=== PATIENT | female | born 1965 | race Caucasian/White ===

== ENCOUNTER 2024-04-05 18:53 | Emergency (ER) | payer MEDICARE, MEDICAID, SELFPAY ==
--- NOTE | 2024-04-05 19:03 | EDNOTE_ITS ---
<Statement entered by Bonnie Mckee MD - 04/06/24 04:28> As co-signing physician, I was present and available for consult prn. I concur with the plan and care as documented by the midlevel provider. ED General RME/HPI General Chief complaint: Extremity Injury, Upper Stated complaint: SHOULDER PAIN Time Seen by Provider: 04/05/24 19:02 Arrival date/time: 04/05/24 18:53 CC: Left shoulder pop HPI onset approximately 45 minutes ago patient presents by the EMS. Patient has profound mental retardation with microcephaly since . Concern by home health nurses the patient has a dislocated left shoulder. Related Data Home Medications ?Medication ?Instructions ?Recorded ?Confirmed B-complex with vitamin C (Super B 1 tab PO QDAY 10/05/19 02/27/20 Complex-Vitamin C tablet) acetaminophen 325 mg tablet 325 mg PO QID PRN Fever 10/05/19 02/27/20 (Tylenol) benztropine 2 mg tablet 2 mg PO QDAY 10/05/19 02/27/20 calcitonin (salmon) 200 1 spray intranasal (ALT) QDAY 10/05/19 02/27/20 unit/actuation nasal spray calcium 600 mg (as 1 tab PO BID 10/05/19 02/27/20 carbonate)-vitamin D3 10 mcg (400 unit) tablet docusate sodium 250 mg capsule 250 mg PO BID 10/05/19 02/27/20 famotidine 20 mg tablet 20 mg PO QDAY 10/05/19 02/27/20 ferrous sulfate 325 mg (65 mg 325 mg PO QDAY 10/05/19 02/27/20 iron) tablet,delayed release lactulose 10 gram/15 mL oral 20 g PO BID 10/05/19 02/27/20 solution (Enulose) pravastatin 20 mg tablet 20 mg PO QDAY 10/05/19 02/27/20 sodium polystyrene sulfonate 15 120 ml PO EVERYOTHERDAY 10/05/19 02/27/20 gram/60 mL oral suspension magnesium hydroxide 400 mg/5 mL 30 ml PO QDAY PRN Constipation 02/27/20 02/27/20 oral suspension (Milk of Magnesia) Allergies Allergy/AdvReac Type Severity Reaction Status Date / Time No Known Allergies Allergy Verified 10/05/19 10:37 Review of Systems Review of Systems ROS Unobtainable: unobtainable due to mental status Narrative Review of Systems: \ ED Exam Narrative Physical exam: [General: Appears not in any acute distress Head normocephalic HEENT: Eyes pupils are PERRLA EOMs intact mouth pink dry membranes mouth breather. All other subsystems of HEENT are within acceptable limits Neck is supple nontender Chest equal chest rise nontender to palpation Respiratory: Clear to auscultation no wheezes crackles or rubs CV: Rate rhythm is regular no murmurs rubs or clicks Abdomen is soft nontender no masses positive bowel sounds all 4 quadrants Skin: Intact no petechiae rash induration ulceration or crepitus Extremities: Left upper extremity is significantly contracted, deconditioned secondary to chronic condition. All other extremities deconditioned and contracted. Neuro: Awake Course Course Course Narrative: Patient has such severe contractures in the left upper extremity and turning of the head to the left side it is difficulty to complete a plain film series at this time I elect to CT the shoulder. Quality Measures none Orders Category Date Time Status CT shoulder LT wo con Stat Exams 04/05/24 20:04 Taken XR shoulder LT min 2V Stat Exams 04/05/24 19:03 Completed Vital Signs Vital signs: Vital Signs Temperature 99.5 F 04/05/24 19:52 Pulse Rate 140 H 04/05/24 19:52 Respiratory Rate 19 04/05/24 19:52 Blood Pressure 129/95 H 04/05/24 19:52 Pulse Oximetry (%) 94 L 04/05/24 19:52 Oxygen Delivery Method Room Air 04/05/24 19:52 [facility] Patient data External records reviewed:: [facility] previous records and EMS form Clinical information provided by:: patient and EMS Social determinants that could affect healthcare access:: none Patient has the following chronic illnesses:: Severe mental retardation microcephaly How is presenting disease/condition affected by chronic disease/condition?: uneffected by Evaluation data The following diagnostics were reviewed and interpreted by me:: radiology exam(s) Lab and/or radiology exams considered but not ordered:: Nondisplaced humeral head fracture. Interpretation Summary: Humeral head fracture Medications Medications considered but not ordered:: None Medication administrations:: None Consultations Consultation(s) initiated? (list below): No Diagnosis Differential Diagnosis ED Complaint MDM: Shoulder dislocation humeral fracture humeral head fracture Most likely diagnosis given after review of the tests above:: Humeral head fracture Admission Indicated Admission indicated?: not indicated Explain why admission is indicated or not indicated:: Stable for discharge Admission Request Was there a request for admission?: No Disposition Plan Disposition Plan: Discharge Discharge Attestation Discharge Attestation: The patient and all family members were given an opportunity to ask questions and understood the discharge instructions. Discharge instructions specifically effects, indications for sooner follow up or return to the emergency department, and the expected course of current diagnosis. Patient condition: Stable Medical Decision Making Differential Diagnosis Differential Diagnosis: Shoulder dislocation humeral fracture humeral head fracture Discharge Plan Plan Patient Disposition: HOME (Self Care) Patient condition on transfer: Stable Prescriptions/Referrals Prescriptions/Med Rec: No Action acetaminophen [Tylenol] 325 mg Tablet 325 mg PO QID PRN (Reason: Fever) sodium polystyrene sulfonate 15 gram/60 mL Suspension 120 ml PO EVERYOTHERDAY Rx Instructions: SATURDAY, SATURDAY, SATURDAY famotidine 20 mg Tablet 20 mg PO QDAY calcitonin (salmon) 200 unit/actuation [place],Non-Aerosol 1 spray INTRANASAL (ALT) QDAY benztropine 2 mg Tablet 2 mg PO QDAY pravastatin 20 mg Tablet 20 mg PO QDAY ferrous sulfate 325 mg (65 mg iron) Tablet,Delayed Release (Dr/Ec) 325 mg PO QDAY docusate sodium 250 mg Capsule 250 mg PO BID B-complex with vitamin C [Super B Complex-Vitamin C] Tablet 1 tab PO QDAY lactulose [Enulose] 10 gram/15 mL Solution 20 g PO BID calcium carbonate-vitamin D3 600 mg(1,500mg) -400 unit Tablet 1 tab PO BID magnesium hydroxide [Milk of Magnesia] 400 mg/5 mL Suspension 30 ml PO QDAY PRN (Reason: Constipation) Rx Instructions: hold for loose stools Referrals: Kb Caraballo MD [Primary Care Provider] - In 1 week Chandana Padilla MD [Physician] - In 1 week Problem List Clinical Impression: Fracture of head of humerus Patient/Caregiver Discharge Instructions Education Materials: Understanding a Humerus Fracture Additional Instructions: Ms. Rodríguez has a humeral head fracture left side, because of her contractures there can be no splint placed on her arm it is splinted already by her muscle contractures. Please be very careful moving this arm while changing close until the arm heals which should extend up to as long as 10 weeks. Print Language: Trinidadian Stand Alone Forms: Ramonita Award Info., Patient Portal Info Letter PA/MENU PLANNER Supervising Physician PA/MENU PLANNER Supervising Physician: Ilya Tamayo ENP
--- NOTE | 2024-04-05 19:03 | XR_ITS ---
Examination: Left shoulder 2 views TECHNIQUE: AP left shoulders 2 view Examination type: October 03, 2024 1926 hours INDICATIONS: Injury to the shoulder study, shoulder pain FINDINGS: Acute fracture humeral neck, mild impaction No shoulder dislocation IMPRESSION: Limited study Acute fracture humeral neck
[2024-04-05 19:52] VITALS: BP 129/95; PULSE 140; RESP 19; TEMP 37.5; O2SAT 94
--- NOTE | 2024-04-05 20:04 | XR_ITS ---
Examination: CT left shoulder, without contrast. 2-D sagittal reconstructions. 2-D coronal reconstructions. 3-D reconstructions. Date and time of exam:April 05, 20242017 hours INDICATIONS: Onset shoulder pain today CTDI: vol (mGy):5.19 DLP: (mGycm):89.7 Technique: Multiple 1.25 mm axial sections of the left shoulder intravenous contrast have been obtained. 2-D sagittal and coronal reconstructions have been obtained. 3-D reconstructions have been obtained. Low dose protocols were performed. One or more of the following dose reduction techniques were used; automated exposure control, adjustment of the mA and/or KV according to patient size, use of iterative reconstruction technique. Findings: The entire study is severely degraded by continual patient motion Impacted acute fracture humeral neck No shoulder dislocation IMPRESSION: The entire study is severely degraded by patient motion Acute impacted fracture humeral neck, better depicted on the plain films
[2024-04-05 21:26] VITALS: BP 135/104; PULSE 124; RESP 16; O2SAT 95
[2024-04-05 22:43] VITALS: RESP 16
== END 2024-04-05 22:44 | disposition home or self-care (01) ==
PROVIDERS: Emergency Provider Emergency Medicine; PCP Family Medicine
DX: S42.292A Other displaced fracture of upper end of left humerus, initial encounter for closed fracture (principal); X58.XXXA Exposure to other specified factors, initial encounter
CPT/HCPCS: 73030; 73200; 99284

== ENCOUNTER 2024-05-12 15:06 | Inpatient (IN) | payer MEDICARE, MEDICAID, SELFPAY ==
--- NOTE | 2024-05-12 | XR_ITS ---
Examination: CT chest, without intravenous contrast. CT abdomen, without intravenous contrast. CT pelvis, without intravenous contrast. 2-D sagittal and coronal reconstructions. 3-D reconstructions. Date and time of exam:May 12, 2024 1716 hours Comparison October 06, 2019 INDICATIONS: Onset chest and abdominal pain today CTDI vol (mgy) 5.16 DLP (MGycm)305 Technique: Multiple CT images, 3.0 mm slice thickness, obtained chest, abdomen, pelvis, with the high-resolution 64 slice scanner.. Sagittal and coronal 2-D reconstructions are obtained. 3-D reconstructions Low dose protocols were performed. One or more of the following dose reduction techniques were used; automated exposure control, adjustment of the mA and/or KV according to patient size, use of iterative reconstruction technique. 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 Moderate vascular congestion Pneumonia in the lingular segment and left base Mild bilateral pleural disease No visualized liver or splenic lesion The gallbladder is poorly visualized No pancreatic mass 12 mm upper pole right renal calculus No hydronephrosis Aorta normal size Normal appendix No bowel obstruction No diverticulitis Atrophic uterus 3.8 cm bladder calculus Bladder wall thickening up to 7.5 mm Severe thoracic dextroscoliosis thoracolumbar levoscoliosis Severe kyphosis dorsal spine, severe osteopenia Mild to moderate narrowing hip joints IMPRESSION: Pneumonia in the lingular segment left upper lobe and left base Herniation of the stomach, portions of small bowel and colon into the thorax Moderate vascular congestion 12 mm upper pole nonobstructing right renal calculus Normal appendix No bowel obstruction 3.8 cm bladder calculus Bladder wall thickening up to 7.5 mm, cystitis included in the differential
--- NOTE | 2024-05-12 15:32 | PD.EDFEVER ---
ED Fever RME/HPI General Chief Complaint: Fever Stated Complaint: FEVER Time Seen by Provider: 05/12/24 15:28 Arrival date/time: 05/12/24 15:06 RME / HPI RME / HPI Narrative: DR. PAUL MAIN ED EVALUATION: This section includes all my notes and documentations, including HPI, PE, and ED course.? Gene Paul MD HPI: 59 year old female with past medical history significant for recent left scalp fracture and osteoporosis presents to the Emergency Department [facility] with complaint of fever, 101.2 F reported at the detention yesterday. Tylenol given at the detention. No obvious vomiting or diarrhea. Uncertain about other symptoms. ROS: Can't obtain from the patient due to decreased cognition. Physical Exam: General:? Alert. Appearance of malaise noted. Eyes:? Conjunctivae and lids clear. ENT:? No nasal congestion.? TM normal bilaterally. Pharynx normal. Neck:? Supple. Heart:?Sinus tachycardia noted. Lungs:? No respiratory distress.? Good air movement.? No significant rhonchi, wheezing, rales.? Abdomen:? Soft and nontender.? Legs:? No clubbing, cyanosis, edema. Skin:? Warm and dry.? I reviewed all diagnostic test results. My interpretation of the EKG is?Sinus rhythm (106 bpm) with nonspecific ST-T changes. My interpretation of the chest x-ray is no acute findings. Blood tests remarkable for K3.3, troponin 0.065, CRP 11.9, BNP 819. Influenza positive. Chest/abdomen CT pending. Repeat troponin pending. Urine specimen pending. At this point, diagnoses include influenza and elevated troponin. Treatment here included Zofran, IV fluid, Tamiflu, oral KCl, Rocephin. At 6 PM on 05/12/2024, the care of the patient was transferred to Dr. Stern. Gene Paul MD Related Data Home Medications ?Medication ?Instructions ?Recorded ?Confirmed B-complex with vitamin C (Super B 1 tab PO QDAY 10/05/19 02/27/20 Complex-Vitamin C tablet) acetaminophen 325 mg tablet 325 mg PO QID PRN Fever 10/05/19 02/27/20 (Tylenol) benztropine 2 mg tablet 2 mg PO QDAY 10/05/19 02/27/20 calcitonin (salmon) 200 1 spray intranasal (ALT) QDAY 10/05/19 02/27/20 unit/actuation nasal spray calcium 600 mg (as 1 tab PO BID 10/05/19 02/27/20 carbonate)-vitamin D3 10 mcg (400 unit) tablet docusate sodium 250 mg capsule 250 mg PO BID 10/05/19 02/27/20 famotidine 20 mg tablet 20 mg PO QDAY 10/05/19 02/27/20 ferrous sulfate 325 mg (65 mg 325 mg PO QDAY 10/05/19 02/27/20 iron) tablet,delayed release lactulose 10 gram/15 mL oral 20 g PO BID 10/05/19 02/27/20 solution (Enulose) pravastatin 20 mg tablet 20 mg PO QDAY 10/05/19 02/27/20 sodium polystyrene sulfonate 15 120 ml PO EVERYOTHERDAY 10/05/19 02/27/20 gram/60 mL oral suspension magnesium hydroxide 400 mg/5 mL 30 ml PO QDAY PRN Constipation 02/27/20 02/27/20 oral suspension (Milk of Magnesia) Allergies Allergy/AdvReac Type Severity Reaction Status Date / Time No Known Allergies Allergy Verified 05/12/24 15:46 Course Quality Measures none Orders Category Date Time Status Bedside COVID-19 Antigen Test NOW Care 05/12/24 15:36 Active Bedside Influenza A&B Antigen Test NOW Care 05/12/24 15:36 Completed EKG (ED ONLY) *Do not use* NOW Care 05/12/24 15:37 Completed Saline [Insert IV] NOW Care 05/12/24 15:36 Active Straight [In and Out Catheter] X1 Care 05/12/24 15:[address] chest abdomen pelvis wo Stat Exams 05/12/24 Taken EKG (ED Only) Stat Exams 05/12/24 15:37 Draft XR chest 1V portable Stat Exams 05/12/24 15:37 Completed BNP [B-Type Natriuretic Peptide] Stat Lab 05/12/24 15:56 Completed Blood Culture (Lab) Stat Lab 05/12/24 15:50 Received CBC Stat Lab 05/12/24 15:56 Completed CMP [Comprehensive Metabolic Panel] Stat Lab 05/12/24 15:56 Completed CRP [C-Reactive Protein] Stat Lab 05/12/24 15:56 Completed ESR [Sed Rate (ESR)] Stat Lab 05/12/24 15:56 Completed Lactate (Lactic Acid) Stat Lab 05/12/24 15:56 Completed Magnesium Stat Lab 05/12/24 15:56 Completed [place] Screen Stat Lab 05/12/24 15:56 Received Procalcitonin Stat Lab 05/12/24 15:56 Completed RSV [Respiratory Syncytial Virus Ag] Stat Lab 05/12/24 15:38 Ordered Salicylate Stat Lab 05/12/24 15:56 Completed Strep A Rapid Stat Lab 05/12/24 15:39 Ordered TSH [Thyroid Stimulating Hormone] Stat Lab 05/12/24 15:56 Completed Troponin I Stat Lab 05/12/24 15:56 Completed Troponin I Stat Lab 05/12/24 17:45 Ordered UA, C/S IF [Urinalysis, C/S if Indicated] Stat Lab 05/12/24 15:39 Ordered KCL 10% Liq UDC 15 ML Med 05/12/24 17:42 Discontinued 40 meq PO X1 ONE Ondansetron Inj [Zofran Inj] Med 05/12/24 15:36 Discontinued 4 mg IV X1 ONE Oseltamivir [Tamiflu] Med 05/12/24 17:42 Discontinued 75 mg PO X1 ONE Sodium Chloride 0.9% 1000 ml [Ns] 1,000 ml Med 05/12/24 15:36 Discontinued IV 999 mls/hr cefTRIAXone [Rocephin] 1,000 mg Med 05/12/24 15:36 Discontinued SODIUM CHLORIDE 0.9% ([place]) [Ns 0.9% (P)] 50 ml IV X1 Vital Signs Vital signs: Vital Signs Pulse Rate 105 H 05/12/24 15:40 Respiratory Rate 20 05/12/24 15:40 Blood Pressure 146/89 H 05/12/24 15:40 Pulse Oximetry (%) 93 L 05/12/24 15:40 Fever MDM Narrative MDM Narrative:: IDi am scribing for and in the presence of Dr. Paul. Patient data External records reviewed:: [facility] previous records (Reviewed last ED visit dated 04/05/24 discharged with the following: Fracture of head of humerus) and EMS form Clinical information provided by:: EMS Social determinants that could affect healthcare access:: housing (home ) Patient has the following chronic illnesses:: recent left scalp fracture and osteoporosis How is presenting disease/condition affected by chronic disease/condition?: uneffected by Evaluation data The following diagnostics were reviewed and interpreted by me:: lab results, radiology exam(s) and EKG tracing(s) (My interpretation of the EKG is: Sinus rhythm (106 bpm) with nonspecific ST-T changes. Gene Paul MD) Lab and/or radiology exams considered but not ordered:: none Interpretation Summary: Influenza and elevated troponin Medications / Prescriptions Medications or Prescriptions considered but not ordered:: none Medication administrations:: Medication Administration History Discontinued Medications Sodium Chloride (Ns) 1,000 mls @ 999 mls/hr IV .Q1H1M ONE Stop: 05/12/24 16:36 Last Admin: 05/12/24 17:01 Dose: 999 mls/hr Documented By: ER Ceftriaxone Sodium 1,000 mg/ (Sodium Chloride) 50 mls @ 100 mls/hr IV X1 ONE Stop: 05/12/24 16:05 Last Admin: 05/12/24 17:02 Dose: 100 mls/hr Documented By: ER Ondansetron HCl (Ondansetron Inj 2 Mg/Ml Inj 2 Ml) 4 mg IV X1 ONE; Protocol Stop: 05/12/24 15:37 Last Admin: 05/12/24 16:59 Dose: 4 mg Documented By: ER Oseltamivir Phosphate (Oseltamivir 75 Mg Capsule) 75 mg PO X1 ONE Stop: 05/12/24 17:43 Potassium Chloride (Potassium Chloride 10% 20 Meq/15 Ml Udc) 40 meq PO X1 ONE Stop: 05/12/24 17:43 Zofran, IV fluid, Rocephin, oral KCl, and Tamiflu. Consultations Consultation(s) initiated? (list below): No Diagnosis Fever Differential Diagnosis: cellulitis, fever of unknown origin, gastroenteritis, community acquired pneumonia, pyelonephritis, viral infection, sepsis and influenza Most likely diagnosis given after review of the tests above:: Influenza and elevated troponin Admission Indicated Admission indicated?: not indicated Explain why admission is indicated or not indicated:: Complete diagnostics pending Admission Request Was there a request for admission?: No Disposition Plan Disposition Plan: other (specify) (Care of the patient was transferred to Dr. Stern) Discharge Plan Prescriptions/Referrals Prescriptions/Med Rec: No Action acetaminophen [Tylenol] 325 mg Tablet 325 mg PO QID PRN (Reason: Fever) sodium polystyrene sulfonate 15 gram/60 mL Suspension 120 ml PO EVERYOTHERDAY Rx Instructions: SATURDAY, SATURDAY, SATURDAY famotidine 20 mg Tablet 20 mg PO QDAY calcitonin (salmon) 200 unit/actuation [place],Non-Aerosol 1 spray INTRANASAL (ALT) QDAY benztropine 2 mg Tablet 2 mg PO QDAY pravastatin 20 mg Tablet 20 mg PO QDAY ferrous sulfate 325 mg (65 mg iron) Tablet,Delayed Release (Dr/Ec) 325 mg PO QDAY docusate sodium 250 mg Capsule 250 mg PO BID B-complex with vitamin C [Super B Complex-Vitamin C] Tablet 1 tab PO QDAY lactulose [Enulose] 10 gram/15 mL Solution 20 g PO BID calcium carbonate-vitamin D3 600 mg(1,500mg) -400 unit Tablet 1 tab PO BID magnesium hydroxide [Milk of Magnesia] 400 mg/5 mL Suspension 30 ml PO QDAY PRN (Reason: Constipation) Rx Instructions: hold for loose stools Referrals: Kb Caraballo MD [Primary Care Provider] - In 1 week Problem List Clinical Impression: Influenza, Elevated troponin Patient/Caregiver Discharge Instructions Print Language: Taiwanese
[2024-05-12 15:35] VITALS: PULSE 112; RESP 24; O2SAT 98
--- NOTE | 2024-05-12 15:37 | EKG_ITS ---
[facility] Test Date: 2024-05-12 Pat Name: CHITO WATSON Department: Room: - Gender: Female Sales And Service Advisor: : 1965 Requested By: Gene Nelson Order Number: [id number] Reading MD: Gene Nelson Measurements Intervals [place] Rate: 106 P: 20 [place]: 140 QRS: 41 QRSD: 81 T: 1 QT: 332 QTc: 441 Interpretive Statements SINUS TACHYCARDIA MINIMAL ST DEPRESSION [0.025+ mV ST DEPRESSION] ABNORMAL RHYTHM ECG Compared to ECG 02/27/2020 11:59:58 ST (T wave) deviation now present T-wave abnormality no longer present /store/S0/[id number].pdf
--- NOTE | 2024-05-12 15:37 | XR_ITS ---
Examination: AP single view TECHNIQUE: Supine portable AP single view Exam date and time: May 12, 2024 1557 hours INDICATIONS: Fever beginning this morning. FINDINGS: The film is severely rotated LPO There appears to be severe parenchymal disease in the left lung IMPRESSION: Nondiagnostic chest x-ray, repeat nonrotated
[2024-05-12 15:40] VITALS: BP 146/89; PULSE 105; RESP 20; O2SAT 93
[2024-05-12 16:00] VITALS: BP 130/86; PULSE 109; RESP 20; TEMP 37.9; O2SAT 97
[2024-05-12 16:07] LABS: Basophils % (Auto) 0 % (0-2.5); Eosinophils % (Auto) 0 % (0-10); Hematocrit 41.8 % (36.0-46.0); Hemoglobin 13.7 g/dL (12.0-16.0); Immature Granulocytes % (Auto) 0 % (0-0); Immature Granulocytes Auto 0.03 Thou/mm3 (0.00-0.00); Lymphocytes # (Auto) 0.6 Thou/mm3 (1.0-4.8); Lymphocytes % (Auto) 6 % (10-50); Mean Corpuscular HGB Conc 32.8 g/dl (31.0-37.0); Mean Corpuscular Volume 92 fL (80-100); Monocytes # (Auto) 0.8 Thou/mm3 (0.0-0.8); Monocytes % (Auto) 7 % (0-12); Neutrophils # (Auto) 9.1 Thou/mm3 (1.8-7.7); Neutrophils % (Auto) 86 % (37-80); Nucleated Red Blood Cell % 0 /100 WBC (0); Platelet Count 246 Thou/mm3 (140-440); RDW Standard Deviation 45.1 fL (36.4-46.3); Red Blood Count 4.56 Miln/mm3 (4.00-5.20); White Blood Count 10.5 Thou/mm3 (3.6-11.0)
[2024-05-12 16:23] LABS: B-Type Natriuretic Peptide 119 pg/mL (0-100)
[2024-05-12 16:36] LABS: Sed Rate (ESR) 30 mm/hr (0-30)
[2024-05-12 16:37] LABS: Alanine Aminotransferase 11 U/L (10-49); Albumin/Globulin Ratio 1.6 (1.2-2.2); Alkaline Phosphatase 114 U/L (46-116); Anion Gap 9 (7-16); Aspartate Amino Transferase 21 U/L (0-34); BUN/Creatinine Ratio 18 Ratio (12-20); Bilirubin,Total 0.4 mg/dL (0.3-1.2); Blood Urea Nitrogen 11 mg/dL (9-23); C-Reactive Protein 11.9 mg/dL (0.0-0.9); Calcium 9.3 mg/dL (8.3-10.6); Calcium (Corrected) 9.3 mg/dL (8.5-10.1); Chloride 102 mMol/L (98-107); Creatinine (Component) 0.6 mg/dL (0.6-1.3); Globulin 2.5 gm/dL (2.3-3.5); Glucose 183 mg/dL (74-106); Magnesium 1.8 mg/dL (1.6-2.6); Osmolality,Calculated 283 (275-295); Potassium 3.3 mMol/L (3.4-5.1); Procalcitonin 0.67 ng/ml (0.0-0.49); Salicylate < 3.0 mg/dL; Sodium 140 mMol/L (136-145); Thyroid Stimulating Hormone 0.98 uIU/mL (0.55-4.78); Total Protein 6.5 gm/dL (5.7-8.2); eGFR > 60 See Note
[2024-05-12 16:43] LABS: Troponin I 0.065 ng/mL (0.0-0.045)
[2024-05-12] MEDS: ONDANSETRON INJ 2 MG/ML INJ 2 ML 4 MG IV (16:59)
[2024-05-12] MEDS: SODIUM CHLORIDE 0.9% 1000 ML 1,000 ML 999 ML IV (17:01)
[2024-05-12] MEDS: cefTRIAXone 1,000 MG in SODIUM CHLORIDE 0.9% (Popper) 50 ML 100 MG IV (17:02)
[2024-05-12 18:03] VITALS: BP 134/94; PULSE 108; RESP 20; TEMP 37.4; O2SAT 95
--- NOTE | 2024-05-12 18:25 | EDNOTE_ITS ---
Emergency Room Addendum Addendum Narrative: [address] Haddad. Past medical, surgical, social and family history reviewed. Vitals and home medications reviewed. Results and treatment plan discussed. I will assume the care of the patient at this time and will follow the patient, pending lab workup and CT results. Please refer to the emergency department record for history and examination from initial visit. The following addendum documentation note is intended to reflect any pending information, findings, or radiology results not included in the patient?s initial chart. 2028 Patient swabs were positive for Influenza A&B. 2034: The patient exhibits generalized choreoathetotic movements and has a history of developmental delay, nonverbal status, and baseline contractures, with features consistent with cerebral palsy. 2045: Sepsis alert initiated. Orders made were congruent with ED Adult Sepsis Order List. Sepsis reassessment performed consisting of lab review, vitals, physical exam including auscultation of heart, lungs, and visual evaluation of capillary refills, mucosal membranes and extremities. 2104: Dr. Srivastava, hospitalist, made aware of the patient?s HPI, PMHx, lab and/or radiology results. Treatment plan was discussed. Accepts patient for admission. Clinical impression: UTI, Sepsis, Pneumonia, Influenza A&B, Elevated Troponin Disposition: Acute Admit w/in Hospital Radiology Evaluation data The following diagnostics were reviewed and interpreted by me: radiology exam(s), EKG Interpretation Summary: According to my interpretation, the EKG from 2050 shows sinus tachycardia at a rate of 135 bpm, with a normal axis, no ectopy, and no signs of ischemia. I personally reviewed the radiology data and agree with the radiologist's interpretation. Examination: CT chest, without intravenous contrast. CT abdomen, without intravenous contrast. CT pelvis, without intravenous contrast. 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 Moderate vascular congestion Pneumonia in the lingular segment and left base Mild bilateral pleural disease No visualized liver or splenic lesion The gallbladder is poorly visualized No pancreatic mass 12 mm upper pole right renal calculus No hydronephrosis Aorta normal size Normal appendix No bowel obstruction No diverticulitis Atrophic uterus 3.8 cm bladder calculus Bladder wall thickening up to 7.5 mm Severe thoracic dextroscoliosis thoracolumbar levoscoliosis Severe kyphosis dorsal spine, severe osteopenia Mild to moderate narrowing hip joints IMPRESSION: Pneumonia in the lingular segment left upper lobe and left base Herniation of the stomach, portions of small bowel and colon into the thorax Moderate vascular congestion 12 mm upper pole nonobstructing right renal calculus Normal appendix No bowel obstruction 3.8 cm bladder calculus Bladder wall thickening up to 7.5 mm, cystitis included in the differential Dictated By: Hakeem Stockton MD, MD Attestation Attestation Scribe Attestation: I, Channing Stewart, am scribing for and in the presence of Dr. Stern. Provider Notation: Although this document has been carefully reviewed, there may still be some phonetic and other typographical errors. These errors are purely grammatical due to imperfections in the software program and should not be construed in any way to compromise the substance of the patient's medical care during this visit. Critical Care Time Critical Care Time Critical Care Time: Yes Total Critical Care Time (min.): 35 Attestation: The high probability of sudden, clinically significant deterioration in the patient?s condition required the highest level of my preparedness to intervene urgently. ? The services I provided to this patient were to treat and/or prevent clinically significant deterioration. Services included the following: chart data review, reviewing nursing notes and/or old charts, documentation time, collection systems consultant collaboration regarding findings and treatment options, medication orders and management, direct patient care, vital sign assessments and ordering, interpreting and reviewing diagnostic studies and lab tests. ? Aggregate critical care time includes only time during which I was engaged in work directly related to the patient?s care, as described above, whether at bed side or elsewhere in the Emergency Department. It did not include time spent performing other reported procedures or the services of residents, students, nurses or physician assistants.
[2024-05-12 18:28] LABS: Troponin I 0.059 ng/mL (0.0-0.045)
[2024-05-12 18:39] LABS: Collection Type, Urine Clean Catch
[2024-05-12 18:58] LABS: Bilirubin,Urine Negative (Negative); Blood,Urine 3+ (Negative); Clarity,Urine Clear (Clear/Hazy); Color,Urine Yellow (Lt Yel-Yel); Culture Indicated,Urine Yes; Glucose, Urine Negative (Negative); Ketones,Urine Negative (Negative); Leukocyte Esterase,Urine Positive (Negative); Nitrite,Urine Positive (Negative); Protein,Urine Trace (Neg - Trace); RBC,Urine 7 /hpf (0-3); Squamous Epithelial Cell,Urine < 1 /hpf (0-5); Urobilinogen,Urine Negative mg/dL (0.0-1.0); WBC,Urine 44 /hpf (0-5)
[2024-05-12] MEDS: OSELTAMIVIR 75 MG CAPSULE PO (19:00)
--- NOTE | 2024-05-12 19:21 | PC.NURSE ---
keren little point of contact [phone]
[2024-05-12 20:13] LABS: Strep A Rapid Negative (Negative)
[2024-05-12] MEDS: POTASSIUM CHL 10 mEq IVPB 10 MEQ/100 ML BAG 100 MEQ IV ×2 (20:19→22:55)
--- NOTE | 2024-05-12 20:26 | EKG_ITS ---
[facility] Test Date: 2024-05-12 Pat Name: CHITO WATSON Department: Room: - Gender: Female Director Of Graduate Medical Education: : 1965 Requested By: Zeus Baig Order Number: [id number] Reading MD: Zeus Baig Measurements Intervals [place] Rate: 135 P: 54 [place]: 140 QRS: 43 QRSD: 74 T: -7 QT: 285 QTc: 428 Interpretive Statements SINUS TACHYCARDIA NONSPECIFIC ST & T-WAVE ABNORMALITY ABNORMAL RHYTHM ECG Compared to ECG 05/12/2024 15:44:47 T-wave abnormality now present ST (T wave) deviation no longer present /store/S0/[id number].pdf
[2024-05-12 20:57] VITALS: BP 168/77; PULSE 128; PULSE 130; RESP 28; RESP 36; O2SAT 96; O2SAT 97
--- NOTE | 2024-05-12 22:21 | PD.RESHP ---
Documentation for date of: 05/12/24 HPI History of Present Illness History of present illness: HPI is limited as patient is poor historian as developmentally delayed. Most of history obtained through fuel cell technician. Rosa M is a 59 y/o female with PMHx of developmental delay, osteoporosis, microcephaly, wheelchair-bound comes in for an evaluation of hypoxia, and increased work of breathing. Patient is conserved and stays at a rn long term care home. Spoke with fuel cell technician who reports that patient is conserved and lives at home with other residents. She is also stating that patient had increased work of breathing and had noticed that her oxygen saturations were 8992%. She also does endorse that there have been other sick residents at her fuel cell technician home. She also notes that the patient was evaluated for a torn left humerus after she was getting her close changed and due to her having osteoporosis there was a break in her bone. She also said that the patient looked a bit different, but is unsure if the patient was having chest pain. Endorsed shortness of breath and fever. No other complaints at this time ED course: Patient came in with a temperature of 100.3, blood pressure 140/89, saturating 93% on room air, respiratory rate of 20, heart rate of 105, sodium of 140, potassium 3.3, bicarb 29, BUN/creatinine of eleven 0.6, blood glucose of 183, white count of 10.5, hemoglobin 13.7, lactate of 2.0, magnesium 1.8, troponin 0.065, Pro-Davon 0.67. EKG showed sinus tachycardia rate in the 110s. She tested influenza positive for A and B. Sepsis alert was initiated. She was given Rocephin x 1, 1 L bolus, Tamiflu 75 mg, Zofran x 1. Medicine was consulted and patient was admitted to floors. Review of Systems Review of Systems Narrative Review of Systems: ROS is limited as patient is poor historian. Exam Vital Signs Temp Pulse Resp BP Pulse Ox O2 Del Method 99.3 F 128 H 28 H 168/77 H 96 Room Air 05/12/24 18:03 05/12/24 20:57 05/12/24 20:57 05/12/24 20:57 05/12/24 20:57 05/12/24 20:57 Narrative Exam General: Developmentally delayed, lying in bed and curled up position, appears to be bedbound, arms, hands and feet close to body HEENT: Poor dentition, dry mucous membranes, eyes wide open, microcephaly Cardiovascular: Tachycardia, radial pulses +2 bilaterally Pulmonary: Wheezing heard on auscultation GI: No tenderness to light or deep palpitation, no guarding, rigidity, rebound tenderness or distension Extremities: No presence of trace or pitting edema in lower extremities bilaterally, dorsalis pedis pulses +2 bilaterally Neuro: AAOx0, no focal motor or sensory deficits in the UE or LE bilat Results: Labs 05/12/24 15:56 05/12/24 15:56 Labs: Short CBC 05/12/24 Range/Units 15:56 WBC 10.5 (3.6-11.0) Thou/mm3 Hgb 13.7 (12.0-16.0) g/dL Hct 41.8 (36.0-46.0) % Plt Count 246 (140-440) Thou/mm3 BMP 05/12/24 15:56 Sodium 140 Potassium 3.3 L Chloride 102 Carbon Dioxide 29.0 BUN 11 Creatinine 0.6 Glucose 183 H Calcium 9.3 Cardiac Enzymes 05/12/24 05/12/24 Range/Units 15:56 17:53 Troponin I 0.065 H* 0.059 H* (0.0-0.045) ng/mL Liver Function 05/12/24 Range/Units 15:56 Total Bilirubin 0.4 (0.3-1.2) mg/dL AST 21 (0-34) U/L ALT 11 (10-49) U/L Alkaline Phosphatase 114 (46-116) U/L Albumin 4.0 (3.4-4.8) gm/dL Urine 05/12/24 Range/Units 18:28 Urine Color Yellow (Lt Yel-Yel) Urine Clarity Clear (Clear/Hazy) Urine pH 7.0 (5.0-7.0) Ur Specific [place] 1.010 (1.001-1.035) Urine Protein Trace (Neg - Trace) Urine Glucose (UA) Negative (Negative) Quality Measures Quality Measures none Medications Home Medications and Allergies Home Medications ?Medication ?Instructions ?Recorded ?Confirmed ?Type B-complex with vitamin C (Super B 1 tab PO QDAY 10/05/19 02/27/20 History Complex-Vitamin C tablet) acetaminophen 325 mg tablet 325 mg PO QID PRN Fever 10/05/19 02/27/20 History (Tylenol) benztropine 2 mg tablet 2 mg PO QDAY 10/05/19 02/27/20 History calcitonin (salmon) 200 1 spray intranasal (ALT) QDAY 10/05/19 02/27/20 History unit/actuation nasal spray calcium 600 mg (as 1 tab PO BID 10/05/19 02/27/20 History carbonate)-vitamin D3 10 mcg (400 unit) tablet docusate sodium 250 mg capsule 250 mg PO BID 10/05/19 02/27/20 History famotidine 20 mg tablet 20 mg PO QDAY 10/05/19 02/27/20 History ferrous sulfate 325 mg (65 mg 325 mg PO QDAY 10/05/19 02/27/20 History iron) tablet,delayed release lactulose 10 gram/15 mL oral 20 g PO BID 10/05/19 02/27/20 History solution (Enulose) pravastatin 20 mg tablet 20 mg PO QDAY 10/05/19 02/27/20 History sodium polystyrene sulfonate 15 120 ml PO EVERYOTHERDAY 10/05/19 02/27/20 History gram/60 mL oral suspension magnesium hydroxide 400 mg/5 mL 30 ml PO QDAY PRN Constipation 02/27/20 02/27/20 History oral suspension (Milk of Magnesia) Allergies Allergy/AdvReac Type Severity Reaction Status Date / Time No Known Allergies Allergy Verified 05/12/24 15:46 Visit Medications Acetaminophen (Acetaminophen 325 Mg Tablet) 650 mg PO Q6H PRN PRN Reason: Fever >101.5 Stop: 06/11/24 22:02 Benztropine Mesylate (Benztropine 0.5 Mg Tablet) 2 mg PO QDAY [facility] Stop: 06/12/24 08:59 Calcitonin [place] (Calcitonin, [place] Spr 3.7 Ml Btl) 1 spray NASAL QDAY [facility] Stop: 06/12/24 08:59 Docusate Sodium (Docusate Sod 250 Mg Capsule) 250 mg PO BID [facility]; Protocol Stop: 06/12/24 08:59 Enoxaparin Sodium (Enoxaparin Sod Inj 40 Mg/0.4 Ml Syringe) 40 mg SC QDAY [facility] Stop: 05/27/24 08:59 Famotidine (Famotidine 20 Mg Tablet) 20 mg PO QDAY [place] Stop: 06/12/24 08:59 Sodium Chloride (Ns) 250 mls @ 999 mls/hr IV .Q16M ONE Stop: 05/12/24 22:31 Lactulose (Lactulose Syrup 20 Gm/30 Ml Udc) 10 gm PO BID [facility]; Protocol Stop: 06/12/24 08:59 Magnesium Hydroxide (Milk Of Magnesia Susp 30 Ml Udc) 30 ml PO QDAY [facility]; Protocol Stop: 06/12/24 08:59 Pravastatin Sodium (Pravastatin Sodium 10 Mg Tablet) 20 mg PO QDAY [facility] Stop: 06/12/24 08:59 Discontinued Medications Sodium Chloride (Ns) 1,000 mls @ 999 mls/hr IV .Q1H1M ONE Stop: 05/12/24 16:36 Last Infusion: 05/12/24 18:45 Dose: Infused Ceftriaxone Sodium 1,000 mg/ (Sodium Chloride) 50 mls @ 100 mls/hr IV X1 ONE Stop: 05/12/24 16:05 Last Infusion: 05/12/24 18:45 Dose: Infused Sodium Chloride (Ns) 1,000 mls @ 999 mls/hr IV .Q1H1M ONE Stop: 05/12/24 21:06 Potassium Chloride (Kcl Ivpb) 10 meq in 100 mls @ 100 mls/hr IV X1 ONE Stop: 05/12/24 21:11 Last Infusion: 05/12/24 20:48 Dose: 0 mls/hr Ondansetron HCl (Ondansetron Inj 2 Mg/Ml Inj 2 Ml) 4 mg IV X1 ONE; Protocol Stop: 05/12/24 15:37 Last Admin: 05/12/24 16:59 Dose: 4 mg Oseltamivir Phosphate (Oseltamivir 75 Mg Capsule) 75 mg PO X1 ONE Stop: 05/12/24 17:43 Last Admin: 05/12/24 19:00 Dose: 75 mg Potassium Chloride (Potassium Chloride 10% 20 Meq/15 Ml Udc) 40 meq PO X1 ONE Stop: 05/12/24 17:43 Last Admin: 05/12/24 19:14 Dose: Not Given Assessment & Plan Plan Assessment Rosa M is a 59 y/o female with PMHx of developmental delay, osteoporosis, microcephaly, wheelchair-bound admitted for acute toxic respiratory failure and sepsis secondary to influenza pneumonia. #Acute hypoxic respiratory failure #Sepsis secondary to #Influenza pneumonia Less concern for superimposed bacterial infection at this time qSOFA: 0 points SIRS 2 out of 4 criteria, fever 100.3 and tachycardia Source: Lung Received 1L NS in ER Influenza A and B positive, sick contacts at fuel cell technician home Unsure if patient has gotten influenza vaccine this year Plan: ? Tamiflu 75 mg twice daily ? Oxygen as needed wean down as tolerated ? Follow-up MRSA nares ? Follow-up blood cultures ? 250 cc bolus NS #UTI Urine analysis shows positive nitrates, positive leukocyte esterase According to fuel cell technician, patient does not get chronic UTIs however has gotten them in the past Plan: ? Started broad-spectrum Rocephin 1 g IV daily ? Follow-up urine culture #Hypokalemia 3.3 Patient takes Kayexalate 3 times a day as a home medicine, unsure why Will not resume Kayexalate at this time Plan: ? Trend with CMP ? 20 millequivalents IV #Elevated troponin, resolved .065 -> 0.059 #History of hiatal hernia Chronic Plan: ? Resumed Pepcid 20 mg daily #History of osteoporosis #History of humeral fracture Chronic Plan: ? Resume home calcitonin spray #History of microcephaly #Developmental delay Stable #Health Maintenance Disposition: MedSurg DVT prophylaxis: Lovenox GI prophylaxis: Pepcid Diet: Pureed once patient passes swallow eval CODE STATUS: Full Patient seen and care discussed with my attending physician, Dr. Brenda Yan, PGY-1 Attending Provider Attestation/Addendum I attest that I was physically present for the evaluation, physical examination, lab and imaging review of the patient with the residents. I discussed the case with the residents and agree with the findings and plans of care as documented above. Patient is a 59 years old female with past medical history of developmental delay, microcephaly, osteoporosis who presented to the ED with complaint of hypoxia and work of breathing. Patient is stays at a long-term, and is wheelchair-bound. The fuel cell technician noticed that she has increased work of breathing and her oxygen saturation dropped down to 89% and decided to bring her to the ED. In the ED, she had a temperature of 100.3, respiratory rate 20, heart rate 105. She had WBC of 10.5, lactate 2.0, positive influenza A and B. Sepsis alert was initiated in the ED, patient received IV fluid bolus, Rocephin, Tamiflu and Zofran. We will admit the patient for management of acute hypoxic respiratory failure and sepsis secondary to influenza pneumonia. We will continue with Tamiflu, as needed oxygen and IV hydration. We will follow-up on culture results. Patient also noted to have positive nitrites, leukocyte esterase and WBCs in the urine, we will start her on Rocephin 1 g daily. Patient also has potassium of 3.3, she has been on Kayexalate at home, we will hold Kayexalate administered IV potassium chloride. Patient had elevated troponin at 0.65 which later down trended likely NSTEMI type II. Bentley Gutierrez MD
[2024-05-12] MEDS: SODIUM CHLORIDE 0.9% 250 ML 250 ML 999 ML IV (22:23)
[2024-05-12] MEDS: ACETAMINOPHEN IVPB 1,000 MG/100 ML VIAL 250 MG IV (22:51)
[2024-05-12 23:15] VITALS: BP 147/92; PULSE 110; RESP 25; TEMP 38.7; O2SAT 97
[2024-05-12] MEDS: SODIUM CHLORIDE 0.9% 1000 ML 1,000 ML 75 ML IV (23:20)
[2024-05-13] VITALS (7 sets, daily range): BP systolic 139–186; BP diastolic 95–108; PULSE 92–116; RESP 20–81; TEMP 35.9–36.6; O2SAT 91–97; BMI 19.0
[2024-05-13] MEDS: POTASSIUM CHL 10 mEq IVPB 10 MEQ/100 ML BAG 100 MEQ IV (00:11)
[2024-05-13 00:16] LABS: Lactate (Lactic Acid) 0.7 mMol/L (0.4-2.0)
[2024-05-13 02:59] LABS: Respiratory Syncytial Virus Ag Negative (Negative)
[2024-05-13 05:29] LABS: Basophils % (Auto) 1 % (0-2.5); Eosinophils % (Auto) 0 % (0-10); Hematocrit 38.7 % (36.0-46.0); Hemoglobin 12.9 g/dL (12.0-16.0); Immature Granulocytes % (Auto) 0 % (0-0); Immature Granulocytes Auto 0.03 Thou/mm3 (0.00-0.00); Lymphocytes # (Auto) 0.9 Thou/mm3 (1.0-4.8); Lymphocytes % (Auto) 12 % (10-50); Mean Corpuscular HGB Conc 33.3 g/dl (31.0-37.0); Mean Corpuscular Hemoglobin 30.7 pg (25.0-35.0); Mean Corpuscular Volume 92 fL (80-100); Monocytes # (Auto) 0.7 Thou/mm3 (0.0-0.8); Monocytes % (Auto) 10 % (0-12); Neutrophils # (Auto) 5.3 Thou/mm3 (1.8-7.7); Neutrophils % (Auto) 77 % (37-80); Nucleated Red Blood Cell % 0 /100 WBC (0); Platelet Count 222 Thou/mm3 (140-440)
[2024-05-13 05:50] LABS: Partial Thromboplastin Time 28.5 Seconds (22.0-36.0); Prothrombin Time 11.3 Seconds (9.0-12.2)
[2024-05-13 06:31] LABS: Alanine Aminotransferase 11 U/L (10-49); Albumin, Serum 3.3 gm/dL (3.4-4.8); Albumin/Globulin Ratio 1.6 (1.2-2.2); Alkaline Phosphatase 95 U/L (46-116); Anion Gap 8 (7-16); Aspartate Amino Transferase 22 U/L (0-34); BUN/Creatinine Ratio 13 Ratio (12-20); Bilirubin,Total < 0.2 mg/dL (0.3-1.2); Blood Urea Nitrogen < 5 mg/dL (9-23); Calcium 8.4 mg/dL (8.3-10.6); Carbon Dioxide 25.2 mMol/L (20.0-31.0); Cardiac Risk Estimate 2.2 RATIO (3.7-5.6); Chloride 110 mMol/L (98-107); Cholesterol 110 mg/dL (132-200); Creatinine (Component) 0.4 mg/dL (0.6-1.3); Globulin 2.1 gm/dL (2.3-3.5); Glucose 103 mg/dL (74-106); HDL Cholesterol 50 mg/dL (40-60); LDL Cholesterol,Calculated 36 mg/dL (0-130); Magnesium 1.7 mg/dL (1.6-2.6); Osmolality,Calculated 282 (275-295); Phosphorous 2.5 mg/dL (2.4-5.1); Potassium 3.8 mMol/L (3.4-5.1); Sodium 143 mMol/L (136-145); Total Protein 5.4 gm/dL (5.7-8.2); Triglycerides 120 mg/dL (30-150); eGFR > 60 See Note
[2024-05-13] MEDS: ENOXAPARIN SOD INJ 40 MG/0.4 ML SYRINGE SC (08:44)
[2024-05-13] MEDS: Magnesium Sulfate 4 GM Ivpb 4 GM/50 ML BAG IV (08:44)
--- NOTE | 2024-05-13 09:50 | ESPR_ITS ---
<Statement entered by Paris Edge MD - 05/13/24 23:16> Patient was seen and examined by me personally. I have directly supervised and reviewed documentation by the team resident and agree with its findings with any exceptions or additional findings as below. Plan of care was discussed with the attending, Dr. Tran. Overnight admission. Patient is a 59-year-old female with past medical history of developmental delay, osteoporosis, microcephaly, wheelchair-bound who was admitted for acute toxic respiratory failure and sepsis secondary to influenza A&B pneumonia. She was also found to have UTI and a 3.5 cm bladder stone. Patient is nonverbal, noninteractive, very contracted. Tamiflu was ordered but unfortunately the patient did not pass swallow evaluation and did not receive any doses yet. Dr. Dawn spoke with caregiver on the phone regarding patient's baseline status, she apparently takes very thin liquids at baseline with some difficulty. Patient is conserved by Dr. Mayo. Speech will continue to re-evaluate the patient. The patient is otherwise receiving IV ceftriaxone for the UTI. She does not seem to express any significant distress or tenderness on palpation of the abdomen or suprapubic area on examination. Urology Dr. Han agreed to consult for the bladder stone, much appreciated. Cultures are pending. Paris Edge, PGY-2 Documentation for date of: 05/13/24 Subjective Subjective Interval history: 05/13/2024: Overnight admission for 5-year-old female with developmental delay, conserved by Dr. Mayo presenting from long term with increased work of breathing found to have influenza, pneumonia and cystitis. On examination, patient appears to be in moderate distress secondary to acutely ill status. Patient is also not able to tolerate diet at this time secondary to speech evaluation. Will start the patient on pain management with morphine, IV D5/LR and continue IV antibiotic and Tamiflu treatment. Dr. Han to see the patient for cystitis and bladder calculus noted on CT findings. Exam Vital Signs Temp Pulse Resp BP Pulse Ox O2 Del Method O2 Flow Rate 97 F 108 H 22 H 152/103 H 96 Nasal Cannula 1 05/13/24 08:00 05/13/24 09:16 05/13/24 09:16 05/13/24 08:00 05/13/24 09:16 05/13/24 08:00 05/13/24 08:00 Narrative Exam General: Developmentally delayed, lying in bed and curled up position, appears to be bedbound, arms, hands and feet close to body HEENT: Poor dentition, dry mucous membranes, eyes wide open, microcephaly Cardiovascular: Tachycardia, radial pulses +2 bilaterally Pulmonary: Wheezing heard on auscultation GI: No tenderness to light or deep palpitation, no guarding, rigidity, rebound tenderness or distension Extremities: No presence of trace or pitting edema in lower extremities bilaterally, dorsalis pedis pulses +2 bilaterally Neuro: AAOx0, no focal motor or sensory deficits in the UE or LE bilat Objective Labs 05/14/24 04:18 05/14/24 04:18 Labs: Laboratory Results - last 24 hr 05/12/24 05/12/24 05/12/24 15:38 15:56 17:53 WBC 10.5 RBC 4.56 Hgb 13.7 Hct 41.8 MCV 92 MCH 30.0 MCHC 32.8 RDW Std Deviation 45.1 Plt Count 246 Neut % (Auto) 86 H Lymph % (Auto) 6 L [place] % (Auto) 7 Eos % (Auto) 0 Baso % (Auto) 0 Neut # (Auto) 9.1 H Lymph # (Auto) 0.6 L [place] # (Auto) 0.8 Eos # (Auto) 0.0 Baso # (Auto) 0.0 Immature Gran # (Auto) 0.03 H Absolute Nucleated RBC 0.00 Immature Gran % 0 Nucleated RBC % 0 ESR 30 PT INR APTT Sodium 140 Potassium 3.3 L Chloride 102 Carbon Dioxide 29.0 Anion Gap 9 BUN 11 Creatinine 0.6 Estim Creat Clear Calc Not Performed. eGFR > 60 BUN/Creatinine Ratio 18 Glucose 183 H Calculated Osmolality 283 Lactic Acid 2.0 Calcium 9.3 Corrected Calcium 9.3 Phosphorus Magnesium 1.8 Total Bilirubin 0.4 AST 21 ALT 11 Alkaline Phosphatase 114 Troponin I 0.065 H* 0.059 H* C-Reactive Prot, Quant 11.9 H B-Natriuretic Peptide 119 H Total Protein 6.5 Albumin 4.0 Globulin 2.5 Albumin/Globulin Ratio 1.6 Triglycerides Cholesterol LDL Cholesterol, Calc HDL Cholesterol Cholesterol/HDL Ratio Procalcitonin 0.67 H TSH 0.98 Ur Collection Type Urine Color Urine Clarity Urine pH Ur Specific [place] Urine Protein Urine Glucose (UA) Urine Ketones Urine Blood Urine Nitrite Urine Bilirubin Urine Urobilinogen (Auto) Ur Leukocyte Esterase Urine RBC Urine WBC Ur Squamous Epith Cells Urine Bacteria Ur Culture Indicated? Salicylates < 3.0 RSV Rapid Negative Group A Strep Rapid 05/12/24 05/12/24 05/13/24 18:28 19:15 00:13 WBC RBC Hgb Hct MCV MCH MCHC RDW Std Deviation Plt Count Neut % (Auto) Lymph % (Auto) [place] % (Auto) Eos % (Auto) Baso % (Auto) Neut # (Auto) Lymph # (Auto) [place] # (Auto) Eos # (Auto) Baso # (Auto) Immature Gran # (Auto) Absolute Nucleated RBC Immature Gran % Nucleated RBC % ESR PT INR APTT Sodium Potassium Chloride Carbon Dioxide Anion Gap BUN Creatinine Estim Creat Clear Calc eGFR BUN/Creatinine Ratio Glucose Calculated Osmolality Lactic Acid 0.7 Calcium Corrected Calcium Phosphorus Magnesium Total Bilirubin AST ALT Alkaline Phosphatase Troponin I C-Reactive Prot, Quant B-Natriuretic Peptide Total Protein Albumin Globulin Albumin/Globulin Ratio Triglycerides Cholesterol LDL Cholesterol, Calc HDL Cholesterol Cholesterol/HDL Ratio Procalcitonin TSH Ur Collection Type Clean Catch Urine Color Yellow Urine Clarity Clear Urine pH 7.0 Ur Specific [place] 1.010 Urine Protein Trace Urine Glucose (UA) Negative Urine Ketones Negative Urine Blood 3+ A Urine Nitrite Positive Urine Bilirubin Negative Urine Urobilinogen (Auto) Negative Ur Leukocyte Esterase Positive Urine RBC 7 H Urine WBC 44 H Ur Squamous Epith Cells < 1 Urine Bacteria None Ur Culture Indicated? Yes Salicylates RSV Rapid Group A Strep Rapid Negative 05/13/24 04:50 WBC 7.0 RBC 4.20 Hgb 12.9 Hct 38.7 MCV 92 MCH 30.7 MCHC 33.3 RDW Std Deviation 45.0 Plt Count 222 Neut % (Auto) 77 Lymph % (Auto) 12 [place] % (Auto) 10 Eos % (Auto) 0 Baso % (Auto) 1 Neut # (Auto) 5.3 Lymph # (Auto) 0.9 L [place] # (Auto) 0.7 Eos # (Auto) 0.0 Baso # (Auto) 0.0 Immature Gran # (Auto) 0.03 H Absolute Nucleated RBC 0.00 Immature Gran % 0 Nucleated RBC % 0 ESR PT 11.3 INR 1.0 APTT 28.5 Sodium 143 Potassium 3.8 D Chloride 110 H Carbon Dioxide 25.2 Anion Gap 8 BUN < 5 L Creatinine 0.4 L Estim Creat Clear Calc 102.0 eGFR > 60 BUN/Creatinine Ratio 13 Glucose 103 D Calculated Osmolality 282 Lactic Acid Calcium 8.4 Corrected Calcium 9.0 Phosphorus 2.5 Magnesium 1.7 Total Bilirubin < 0.2 L AST 22 ALT 11 Alkaline Phosphatase 95 Troponin I C-Reactive Prot, Quant B-Natriuretic Peptide Total Protein 5.4 L Albumin 3.3 L D Globulin 2.1 L Albumin/Globulin Ratio 1.6 Triglycerides 120 Cholesterol 110 L LDL Cholesterol, Calc 36 HDL Cholesterol 50 Cholesterol/HDL Ratio 2.2 L Procalcitonin TSH Ur Collection Type Urine Color Urine Clarity Urine pH Ur Specific [place] Urine Protein Urine Glucose (UA) Urine Ketones Urine Blood Urine Nitrite Urine Bilirubin Urine Urobilinogen (Auto) Ur Leukocyte Esterase Urine RBC Urine WBC Ur Squamous Epith Cells Urine Bacteria Ur Culture Indicated? Salicylates RSV Rapid Group A Strep Rapid Quality Measures Quality Measures none Assessment & Plan Assessment Current Active Medications: Generic Name Dose Route Start Last Admin Trade Name Freq PRN Reason Stop Dose Admin Acetaminophen 650 mg 05/12/24 22:03 Acetaminophen 325 Mg Tablet PO 06/11/24 22:02 Q6H PRN Fever >101.5 Benztropine Mesylate 2 mg 05/13/24 09:00 05/13/24 09:39 Benztropine 0.5 Mg Tablet PO 06/12/24 08:59 Not Given QDAY [facility] Calcitonin [place] 1 spray 05/13/24 09:00 05/13/24 09:40 Calcitonin, [place] Spr 3.7 Ml Btl NASAL 06/12/24 08:59 Not Given QDAY [facility] Docusate Sodium 250 mg 05/13/24 09:00 05/13/24 09:40 Docusate Sod 250 Mg Capsule PO 06/12/24 08:59 Not Given BID [facility] Protocol Enoxaparin Sodium 40 mg 05/13/24 09:00 05/13/24 08:44 Enoxaparin Sod Inj 40 Mg/0.4 Ml Syringe SC 05/27/24 08:59 40 mg QDAY [facility] Administration Famotidine 20 mg 05/13/24 09:00 05/13/24 09:42 Famotidine 20 Mg Tablet PO 06/12/24 08:59 Not Given QDAY [facility] Ceftriaxone Sodium 1,000 mg/ 50 mls @ 100 mls/hr 05/13/24 17:00 Sodium Chloride IV 05/20/24 16:59 DAILY@1700 [place]ADE[place] Sodium Chloride 1,000 mls @ 75 mls/hr 05/12/24 23:18 05/12/24 23:20 Ns IV 05/13/24 12:37 75 mls/hr .[id number] ONE Administration Magnesium Sulfate 4 gm in 50 mls @ 12.5 mls/hr 05/13/24 08:12 05/13/24 08:44 Magnesium Sulfate Ivpb IV 05/13/24 12:11 12.5 mls/hr X1 ONE Administration Lactulose 10 gm 05/13/24 09:00 05/13/24 09:40 Lactulose Syrup 20 Gm/30 Ml Udc PO 06/12/24 08:59 Not Given BID [facility] Protocol Magnesium Hydroxide 30 ml 05/13/24 09:00 05/13/24 09:41 Milk Of Magnesia Susp 30 Ml Udc PO 06/12/24 08:59 Not Given QDAY [facility] Protocol Oseltamivir Phosphate 75 mg 05/13/24 09:00 05/13/24 09:41 Oseltamivir 75 Mg Capsule PO 05/17/24 09:01 Not Given BID [facility] Pravastatin Sodium 20 mg 05/13/24 21:00 Pravastatin Sodium 10 Mg Tablet PO 06/12/24 20:59 HS KADEEM Plan 59 y/o female with PMHx of developmental delay, osteoporosis, microcephaly, wheelchair-bound admitted for acute toxic respiratory failure and sepsis secondary to influenza pneumonia. #Acute hypoxic respiratory failure #Influenza pneumonia versus bacterial pneumonia, community-acquired Patient is a resident at a [facility] long term and apparently the long term has been having an outbreak of influenza Patient has been having increased work of breathing and apparently when checking SpO2 at the long term she was saturating 88?89 Brought to the ED with SIRS criteria being met, febrile (100.2), tachycardic, WBC mildly elevated; received 1L NS in ER Influenza A and B positive Unsure if patient has gotten influenza vaccine this year 1 set of blood cultures has a positive aerobic bottle with GPC, likely contamination CT chest abdomen/pelvis shows Pneumonia in the lingular segment left upper lobe and left base Plan: Continue Tamiflu 75 mg twice daily Continue IV Rocephin 1 g daily IV morphine as needed for moderate distress secondary to acutely ill status Oxygen as needed wean down as tolerated Pending remaining set of blood culture and MRSA #Cystitis #Bladder calculus #Non-obstructing right renal calculus Urine analysis shows positive nitrates, positive leukocyte esterase CT abdomen pelvis shows 3.8 cm bladder calculus and bladder wall thickening up to 7.5 mm; 12 mm upper pole nonobstructing right renal calculus Plan: Continue IV antibiotics as above Follow-up urine culture Dr Han, urology, consulted; appreciate recommendations #Elevated troponin, downtrending Difficult to discern if the patient is having any symptomatic chest pain at this time Patient did present to the ED with an elevated troponin as noted; .065 -> 0.059 [address] did [address] some ST changes on the lateral leads but no STEMI noted Plan: Will monitor for any acute changes #History of seizures Spoke with patient long term procurement representative who stated the patient does have history of seizures noted when she first became a resident at [facility] in 1990 Patient is not on any antiseizure medications at this time and has not had any seizure activity at the facility/long term On exam, patient is having some sidebending movement towards the left shoulder; does not seem to be seizure activity at this time Plan: Will continue to monitor and consider neurology consultation if symptoms persist #History of hiatal hernia Chronic medical condition CT abdomen pelvis shows herniation of the stomach, portions of small bowel and colon into the thorax Plan: Continue Pepcid 20 mg daily #History of osteoporosis #History of humeral fracture Chronic condition Per long term, the patient recently had a left shoulder fracture but was not a surgical candidate upon assessment Plan: Continue home calcitonin spray #History of microcephaly #Developmental delay Stable Hospital Management: Lines: PIV Diet: N.p.o., pending speech therapy evaluation; on D5 LR at 75 cc/h for 1 bag Bowel: Milk of Magnesia GI prophylaxis: Pepcid DVT prophylaxis: Lovenox Dispo: IV antibiotics for pneumonia, treatment for influenza and urology consultation for cystitis Code: Full Patient seen and assessed with attending Dr. Tran and senior resident Dr. Kely Dawn, PGY-1 Attending Provider Attestation/Addendum I have examined the patient, reviewed labs and imaging findings, discussed the case with the resident(s), and reviewed entered orders. I agree with the plan of care as outlined in this note, with these additional summaries/recommendations: Patient seen at bedside. Patient is nonverbal and no history can be obtained. Patient admitted overnight for acute hypoxic respiratory failure secondary to influenza pneumonia with superimposed bacterial pneumonia. We will continue Tamiflu and IV antibiotics.. Patient was also found to have a urinary tract infection. Cultures pending and will follow-up when available. Patient also has a history of dysphagia and failed swallow evaluation today. Patient will be made NPO. If no improvement we will have to speak with his conservator about goals of care and artificial nutrition. Patient does appear uncomfortable and we will give low-dose morphine. Patient was found to have elevated troponin on admission most likely secondary to demand ischemia and has downtrended. Monitor for now. Patient has history of left femoral neck fracture 04/05/24 although was not a surgical candidate. Will continue pain management as needed. Patient found to have large herniation of stomach, small bowel, and colon into the thorax and patient may follow-up outpatient as desired. Patient has nephrolithiasis with 12 mm upper pole nonobstructing right renal calculus and 3.8 cm bladder calculus. We will consult urology, recommendations appreciated. Patient also noted to have bladder wall thickening up to 7.5 millimeters which may be secondary to urinary tract infection. Overall prognosis is guarded at this time. Repeat hematology and chemistry panel in AM. Dr. Chelsea MD
[2024-05-13] MEDS: ACETAMINOPHEN SUPP 650 MG SUPP PR (10:21)
--- NOTE | 2024-05-13 12:18 | PC.SS ---
Pt is from [facility].? SS spoke to Fabby, powerhouse helper from [place] [address] regarding patient's d/c plan.? Pt is non verbal.? Pt was admitted for Influenza Pneumonia.? Fabby confirmed patient's demographic and contact information is correct on facesheet.? Pt requires to 2 people to assists when transferring into wheelchair.? Pt requires assistance with all ADLs.? SS also spoke to Cecilia Barrios, freight handler of residential who states pt is conserved through [facility] and they make the medical decisions.? Patient will return upon d/c.? Per Fabby, pt is not diabetic and is not on dialysis.? Per Fabby, pt followed up with PCP April 23, 2024.? Pt possibly will require transportation home pending residential staff's availability. D/C plan:? Return home Next of Kin:? [facility], phone# [phone] PCP:? Dr. Kb Caraballo from [facility] Address:? Correct on facesheet
[2024-05-13] MEDS: MORPHINE SULF INJ 10 MG/ML VIAL IVP ×2 (12:23→16:24)
[2024-05-13] MEDS: SODIUM CHLORIDE 0.9% 1000 ML 1,000 ML 75 ML IV (14:14)
[2024-05-13] MEDS: DEXTROSE 5%-LACTATED RINGERS 1,000 ML 75 ML IV (14:42)
[2024-05-13 15:39] LABS: Mono Screen Negative (Negative)
[2024-05-13] MEDS: cefTRIAXone 1,000 MG in SODIUM CHLORIDE 0.9% (Popper) 50 ML 100 MG IV (16:05)
--- NOTE | 2024-05-13 18:30 | ESCONSULT_ITS ---
RE: CHITO WATSON : 1965 DATE OF CONSULTATION: 05/13/2024 Location of the patient is 353. The patient is seen, chart is reviewed, consult is dictated. Hospital RN was my loan expeditor her name is Bibi, she was present all the time. REASON FOR CONSULTATION: 1. Neurogenic bladder. 2. Bladder stone. 3. Urinary tract infection. ESTABLISHED DIAGNOSIS ON THIS PATIENT: 1. Developmental delay. 2. Microcephaly. 3. Wheelchair bound. No history from the patient is available. History and physical is reviewed from the patient's chart. HISTORY OF PRESENT ILLNESS: This is a 59-year-old female. She has neurogenic bladder as a result of a developmental delay. 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 Railroad Car Loader was not present at this time. She was brought to the operating room because of rapid breathing. The patient does have a history of osteoporosis. She had workup done in the emergency room. CAT scan was done and she was found to have a 3.5 cm stone in the bladder and there is a stone in the right kidney, which is nonobstructive. In the emergency room, the patient has temperature of 100.3, blood pressure 140/89, O2 saturation 93%, respiratory rate of 20, heart rate 105. Serum sodium 140, potassium is 3.3, bicarb 29, white cell count of 10.5, hemoglobin 13.7. She is tested positive for influenza A and B. NARRATIVE EXAM: General: Development delay, lying in the bed curled off, has a contracture of lower extremities. Appears to be bedbound, arm, hand, and feet close to the body. HEENT: Poor dentition. VARIOUS LAB RESULTS: The patient has scoliosis and she has contracture of the lower extremities. CAT scan is reviewed by me. This is a 3.5 cm stone in the bladder and has a nonobstructive stone in the right kidney. She had a urinalysis done in the emergency room and urine for culture sensitivity has been sent. ASSESSMENT AND PLAN: This is a 59-year-old female. She has a complex and complicated medical history. She has neurogenic bladder and stone in the bladder. She has a contracture of lower extremities. For her urinary tract infection, my recommendation is to treat her with antibiotics according to the culture sensitivity. She also has an acute hypoxic respiratory failure and sepsis secondary to it and continue sepsis secondary to influenza and pneumonia and that is being managed by the medical team. For her stone in the bladder, because the patient has contracture of lower extremity, it will be very hard to position in the operating room for laser stone lithotripsy since there is not a care provider at this time and I will try to get in touch with the care provider. For the time being, she needs a supportive treatment and treat her UTI according to the culture sensitivity and continue treating her sepsis and influenza. DT: 16:28:39 TT: 18:28:00 Ref: - TID: [id number]
[2024-05-14] VITALS (8 sets, daily range): BP systolic 134–169; BP diastolic 92–116; PULSE 83–109; RESP 19–26; TEMP 35.8–37.2; O2SAT 92–100; BMI 19.2
[2024-05-14 05:58] LABS: Basophils % (Auto) 1 % (0-2.5); Eosinophils # (Auto) 0.1 Thou/mm3 (0.0-0.5); Eosinophils % (Auto) 1 % (0-10); Hematocrit 35.7 % (36.0-46.0); Hemoglobin 11.7 g/dL (12.0-16.0); Immature Granulocytes % (Auto) 0 % (0-0); Immature Granulocytes Auto 0.02 Thou/mm3 (0.00-0.00); Lymphocytes # (Auto) 1.1 Thou/mm3 (1.0-4.8); Lymphocytes % (Auto) 20 % (10-50); Mean Corpuscular HGB Conc 32.8 g/dl (31.0-37.0); Mean Corpuscular Hemoglobin 30.1 pg (25.0-35.0); Mean Corpuscular Volume 92 fL (80-100); Monocytes # (Auto) 0.8 Thou/mm3 (0.0-0.8); Monocytes % (Auto) 15 % (0-12); Neutrophils # (Auto) 3.5 Thou/mm3 (1.8-7.7); Neutrophils % (Auto) 63 % (37-80); Nucleated Red Blood Cell % 0 /100 WBC (0); Platelet Count 233 Thou/mm3 (140-440); RDW Standard Deviation 44.4 fL (36.4-46.3); Red Blood Count 3.89 Miln/mm3 (4.00-5.20); White Blood Count 5.5 Thou/mm3 (3.6-11.0)
[2024-05-14 06:51] LABS: Alanine Aminotransferase < 7 U/L (10-49); Albumin, Serum 3.1 gm/dL (3.4-4.8); Albumin/Globulin Ratio 1.5 (1.2-2.2); Alkaline Phosphatase 86 U/L (46-116); Anion Gap 9 (7-16); Aspartate Amino Transferase 12 U/L (0-34); BUN/Creatinine Ratio 8 Ratio (12-20); Bilirubin,Total < 0.2 mg/dL (0.3-1.2); Blood Urea Nitrogen < 5 mg/dL (9-23); Calcium (Corrected) 8.7 mg/dL (8.5-10.1); Carbon Dioxide 25.8 mMol/L (20.0-31.0); Chloride 106 mMol/L (98-107); Creatinine (Component) 0.6 mg/dL (0.6-1.3); Globulin 2.1 gm/dL (2.3-3.5); Osmolality,Calculated 305 (275-295); Potassium 3.4 mMol/L (3.4-5.1); Sodium 141 mMol/L (136-145); Total Protein 5.2 gm/dL (5.7-8.2); eGFR > 60 See Note
[2024-05-14 06:59] LABS: Glucose 581 mg/dL (74-106)
--- NOTE | 2024-05-14 09:25 | PC.SS ---
Follow up note: On IV antibiotic. Blood cultures are gram positive. Pt will return to [facility] upon dc.
[2024-05-14] MEDS: ENOXAPARIN SOD INJ 40 MG/0.4 ML SYRINGE SC (09:43)
[2024-05-14] MEDS: VANCOMYCIN/NS 1 GM IVPB 200 ML IV (10:28)
[2024-05-14] MEDS: CALCITONIN SALMON 1 SPRAY NASAL (10:28)
[2024-05-14] MEDS: MORPHINE SULF INJ 10 MG/ML VIAL IVP ×3 (10:38→20:25)
[2024-05-14] MEDS: bisacodyL 10 MG SUPP PR (12:27)
--- NOTE | 2024-05-14 12:41 | PC.DIETICIAN ---
Nutrition recommendations If oral intake is feasible: No dietary restrictions (adjust food/liquids per DRAPERY HANGER). If EN is within plan of care, consider: Jevity 1.5 at 20 ml/hr via OG/NG tube by pump. Advance 10 ml every 8 hrs to goal rate of 40 ml/hr x 24 hrs. If no IV fluids, water flushes of 35 ml/hr (or per MD).
--- NOTE | 2024-05-14 14:43 | ESPR_ITS ---
<Statement entered by Paris Edge MD - 05/14/24 22:18> Patient was seen and examined by me personally. I have directly supervised and reviewed documentation by the team resident and agree with its findings with any exceptions or additional findings as below. Plan of care was discussed with the attending, Dr. Tran. Patient was seen at bedside this morning, appeared in distress and yelling out. Patient noninteractive, however. On examination, there did not appear to be increased reaction indicating tenderness to palpation of the abdomen or suprapubic regions. Patient has 1/2 blood culture samples positive for GPC, so blood cultures will be repeated today and IV vancomycin was started. Continue IV ceftriaxone for community-acquired pneumonia and cystitis. Patient failed swallow evaluation today again, unable to eat or take PO. Regarding bladder stone, Urology Dr. Han stated that procedural intervention would be very difficult in this patient due to the contractures, therefore continue with conservative management. Dr. Dawn spoke with patient's conservator, Dr. Mayo. He recommended NG tube placement and starting tube feeds. Dietary was consulted for recommendations. Patient's oral meds will be administered through NG, including Tamiflu which was resumed. Otherwise, per Dr. Mayo continue IV antibiotics and treatment for now. He plans to review her file and follow up with recommendations. There is a possibility that hospice may be considered for the patient should she unable to feed again, as PEG placement is not ideal. Paris Edge, PGY-2 Documentation for date of: 05/14/24 Subjective Subjective Interval history: 05/14/2024: No acute overnight events to report. Patient seen and assessed in hospital bed appears to be in some mild distress and continues to be on nasal cannula supplemental oxygen. Patient has failed swallow evaluation and will need reevaluation for enteral feeding; moreover, dietary team has been consulted for recommendations. Spoke with Dr. Mayo, the patient's conservator, he states that he would like to refresh regarding the patient's history and he will read up on her and provide recommendations in the coming days. He also recommended that someone from the care home, and attempts swallow screen as they are usually the ones who feed the patient. Ultimately, if the patient is not able to pass swallow evaluation, Dr. Mayo is stating that NG tube placement and tube feeding is reasonable. Patient also had GPC growing from both aerobic and anaerobic bottles from first set; moreover, will start IV vancomycin. Dr. Han, urology, saw the patient regarding the bladder calculus and does not recommend surgical intervention at this time; moreover, states that outpatient follow-up for lithotripsy could be possible and to continue current medical treatment. Exam Vital Signs Temp Pulse Resp BP Pulse Ox O2 Del Method O2 Flow Rate 96.5 F L 105 H 22 H 144/116 H 93 L Nasal Cannula 1 05/14/24 08:00 05/14/24 08:00 05/14/24 08:00 05/14/24 08:00 05/14/24 08:00 05/14/24 08:00 05/14/24 08:00 Narrative Exam General: Developmentally delayed, lying in bed and curled up position, appears to be bedbound, arms, hands and feet close to body HEENT: Poor dentition, dry mucous membranes, eyes wide open, microcephaly Cardiovascular: Tachycardia, radial pulses +2 bilaterally Pulmonary: Wheezing heard on auscultation GI: No tenderness to light or deep palpitation, no guarding, rigidity, rebound tenderness or distension Extremities: No presence of trace or pitting edema in lower extremities bilaterally, dorsalis pedis pulses +2 bilaterally Neuro: AAOx0, no focal motor or sensory deficits in the UE or LE bilat Objective Labs 05/15/24 04:36 05/15/24 04:36 Labs: Laboratory Results - last 24 hr 05/12/24 05/14/24 15:56 04:18 WBC 5.5 RBC 3.89 L Hgb 11.7 L Hct 35.7 L MCV 92 MCH 30.1 MCHC 32.8 RDW Std Deviation 44.4 Plt Count 233 Neut % (Auto) 63 Lymph % (Auto) 20 Haines % (Auto) 15 H Eos % (Auto) 1 Baso % (Auto) 1 Neut # (Auto) 3.5 Lymph # (Auto) 1.1 Haines # (Auto) 0.8 Eos # (Auto) 0.1 Baso # (Auto) 0.0 Immature Gran # (Auto) 0.02 H Absolute Nucleated RBC 0.00 Immature Gran % 0 Nucleated RBC % 0 Sodium 141 Potassium 3.4 Chloride 106 Carbon Dioxide 25.8 Anion Gap 9 BUN < 5 L Creatinine 0.6 Estim Creat Clear Calc 68.0 eGFR > 60 BUN/Creatinine Ratio 8 L Glucose 581 H* D Calculated Osmolality 305 H Calcium 8.0 L Corrected Calcium 8.7 Total Bilirubin < 0.2 L AST 12 ALT < 7 L Alkaline Phosphatase 86 Total Protein 5.2 L Albumin 3.1 L Globulin 2.1 L Albumin/Globulin Ratio 1.5 Monoscreen Negative Quality Measures Quality Measures none Assessment & Plan Assessment Current Active Medications: Generic Name Dose Route Start Last Admin Trade Name Freq PRN Reason Stop Dose Admin Acetaminophen 650 mg 05/12/24 22:03 Acetaminophen 325 Mg Tablet PO 06/11/24 22:02 Q6H PRN Fever >101.5 Acetaminophen 650 mg 05/13/24 10:02 05/13/24 10:21 Acetaminophen Supp 650 Mg Supp VA 06/12/24 10:01 650 mg Q4HR PRN Administration Pain 1-3 Or Fever > 100.3 Protocol Benztropine Mesylate 2 mg 05/13/24 09:00 05/14/24 09:26 Benztropine 0.5 Mg Tablet PO 06/12/24 08:59 Not Given QDAY KADEEM Calcitonin [place] 1 spray 05/13/24 09:00 05/14/24 10:28 Calcitonin, [place] Spr 3.7 Ml Btl NASAL 06/12/24 08:59 1 spray QDAY KADEEM Administration Docusate Sodium 250 mg 05/13/24 09:00 05/14/24 09:26 Docusate Sod 250 Mg Capsule PO 06/12/24 08:59 Not Given BID KADEEM Protocol Enoxaparin Sodium 40 mg 05/13/24 09:00 05/14/24 09:43 Enoxaparin Sod Inj 40 Mg/0.4 Ml Syringe SC 05/27/24 08:59 40 mg QDAY KADEEM Administration Famotidine 20 mg 05/13/24 09:00 05/14/24 09:26 Famotidine 20 Mg Tablet PO 06/12/24 08:59 Not Given QDAY KADEEM Ceftriaxone Sodium 1,000 mg/ 50 mls @ 100 mls/hr 05/13/24 17:00 05/13/24 16:05 Sodium Chloride IV 05/20/24 16:59 100 mls/hr DAILY@1700 KADEEM Administration Lactulose 10 gm 05/13/24 09:00 05/14/24 09:26 Lactulose Syrup 20 Gm/30 Ml Udc PO 06/12/24 08:59 Not Given BID [facility] Protocol Magnesium Hydroxide 30 ml 05/13/24 09:00 05/14/24 09:26 Milk Of Magnesia Susp 30 Ml Udc PO 06/12/24 08:59 Not Given QDAY [facility] Protocol Morphine Sulfate 1 mg 05/14/24 08:50 05/14/24 10:38 Morphine Sulf Inj 10 Mg/Ml Vial IVP 05/18/24 11:59 1 mg Q4HR PRN Administration PAIN SCALE 4-10(Mod-Sev Oseltamivir Phosphate 75 mg 05/13/24 09:00 05/14/24 09:26 Oseltamivir 75 Mg Capsule PO 05/17/24 09:01 Not Given BID KADEEM Pharmacy Consult 1 each 05/14/24 09:00 Vancomycin Pharmacy To Dose 1 Each Each IV 06/13/24 08:59 QDAY PRN CONSULT Pravastatin Sodium 20 mg 05/13/24 21:00 05/13/24 21:22 Pravastatin Sodium 10 Mg Tablet PO 06/12/24 20:59 Not Given [facility] Sennosides 1 tab 05/14/24 08:50 Senna/Docusate Sod 1 Tab Tablet PO 06/13/24 08:49 QDAY PRN CONSTIPATION Protocol Plan 59 y/o female with PMHx of developmental delay, osteoporosis, microcephaly, wheelchair-bound admitted for acute toxic respiratory failure and sepsis secondary to influenza pneumonia. #Acute hypoxic respiratory failure #Influenza pneumonia versus bacterial pneumonia, community-acquired Patient is a resident at a [place] care home and apparently the care home has been having an outbreak of influenza Patient has been having increased work of breathing and apparently when checking SpO2 at the care home she was saturating 88?89 Brought to the ED with SIRS criteria being met, febrile (100.2), tachycardic, WBC mildly elevated; received 1L NS in ER Influenza A and B positive Unsure if patient has gotten influenza vaccine this year 1 set of blood cultures has a positive GPC now from both bottles; second set NG [address] chest abdomen/pelvis shows Pneumonia in the lingular segment left upper lobe and left base Plan: Continue Tamiflu 75 mg twice daily Continue IV Rocephin 1 g daily Added IV Vancomycin IV morphine as needed for moderate distress secondary to acutely ill status Oxygen as needed wean down as tolerated Repeat blood cultures sent #Cystitis #Bladder calculus #Non-obstructing right renal calculus Urine analysis shows positive nitrates, positive leukocyte esterase CT abdomen pelvis shows 3.8 cm bladder calculus and bladder wall thickening up to 7.5 mm; 12 mm upper pole nonobstructing right renal calculus Dr Han, urology, consulted; appreciate recommendations Plan: Continue IV antibiotics as above Follow-up urine culture Outpatient urology follow-up for lithotripsy; although, she is at high risk per Dr. Han's note Will continue to treat infection #Poor PO Intake Per [facility] staff member, patient has always had difficulty with feeding They utilize very thin fluids for her meals Failed Speech evaluation twice; follow-up reevaluation pending Dietary team contacted for recommendations for enteral feeding Plan: Will call Dr. Mayo (conservator) and ask for next steps regarding patient's overall malnutrition Failed swallow eval again; will start tube feeding Jevity 1.5 per dietary recommendations #Elevated troponin, downtrending Difficult to discern if the patient is having any symptomatic chest pain at this time Patient did present to the ED with an elevated troponin as noted; .065 -> 0.059 [address] did [address] some [address] changes on the lateral leads but no STEMI noted Plan: Will monitor for any acute changes #History of seizures Spoke with patient care home sales representative health insurance who stated the patient does have history of seizures noted when she first became a resident at [place] in 1990 Patient is not on any antiseizure medications at this time and has not had any seizure activity at the facility/care home On exam, patient is having some sidebending movement towards the left shoulder; does not seem to be seizure activity at this time Plan: Will continue to monitor and consider neurology consultation if symptoms persist #History of hiatal hernia Chronic medical condition CT abdomen pelvis shows herniation of the stomach, portions of small bowel and colon into the thorax Plan: Continue Pepcid 20 mg daily #History of osteoporosis #History of humeral fracture Chronic condition Per care home, the patient recently had a left shoulder fracture but was not a surgical candidate upon assessment Plan: Continue home calcitonin spray #History of microcephaly #Developmental delay Stable Hospital Management: Lines: PIV Diet: N.p.o., pending speech therapy evaluation; on D5 LR at 75 cc/h for 1 bag Bowel: Milk of Magnesia GI prophylaxis: Pepcid DVT prophylaxis: Lovenox Dispo: IV antibiotics for pneumonia, treatment for influenza and urology consultation for cystitis Code: Full Patient seen and assessed with attending Dr. Tran and senior resident Dr. Kely Dawn, PGY-1 Attending Provider Attestation/Addendum I have examined the patient, reviewed labs and imaging findings, discussed the case with the resident(s), and reviewed entered orders. I agree with the plan of care as outlined in this note, with these additional summaries/recommendations: Patient seen at bedside. Patient is nonverbal and no history can be obtained. Patient admitted overnight for acute hypoxic respiratory failure secondary to influenza pneumonia with superimposed bacterial pneumonia. We will continue Tamiflu and IV antibiotics.. Patient was also found to have a urinary tract infection. Cultures pending and will follow-up when available. Patient also has a history of dysphagia and failed swallow evaluation today. Patient will be made NPO. If no improvement we will have to speak with his conservator about goals of care and artificial nutrition. Patient does appear uncomfortable and we will give low-dose morphine. Patient was found to have elevated troponin on admission most likely secondary to demand ischemia and has downtrended. Monitor for now. Patient has history of left femoral neck fracture 04/05/24 although was not a surgical candidate. Will continue pain management as needed. Patient found to have large herniation of stomach, small bowel, and colon into the thorax and patient may follow-up outpatient as desired. Patient has nephrolithiasis with 12 mm upper pole nonobstructing right renal calculus and 3.8 cm bladder calculus. Urology following.. Patient also noted to have bladder wall thickening up to 7.5 millimeters which may be secondary to urinary tract infection. Overall prognosis is guarded at this time. Repeat hematology and chemistry panel in AM. Dr. Chelsea MD
[2024-05-14] MEDS: cefTRIAXone 1,000 MG in SODIUM CHLORIDE 0.9% (Popper) 50 ML 100 MG IV (16:18)
--- NOTE | 2024-05-14 16:38 | XR_ITS ---
Examination: AP chest single view Technique: AP portable semiupright chest single view Exam date and time: May 14, 2024 1643 hrs. Comparison May 12, 2024 Indications: Post orogastric tube placement Findings: The film is rotated severely LPO Orogastric tube in stomach satisfactory position Cardiac contour is enlarged and there is pneumonia in the left lung Numerous pulmonary vascular congestion Impression: Orogastric tube satisfactory position
[2024-05-14] MEDS: DOCUSATE SOD 250 MG CAPSULE PO (21:50)
[2024-05-14] MEDS: PRAVASTATIN SODIUM 10 MG TABLET 20 MG PO (21:50)
[2024-05-14] MEDS: OSELTAMIVIR 75 MG CAPSULE PO (21:50)
[2024-05-14] MEDS: LACTULOSE SYRUP 20 GM/30 ML UDC 10 GM PO (21:51)
[2024-05-15] VITALS (8 sets, daily range): BP systolic 127–160; BP diastolic 85–102; PULSE 81–106; RESP 15–20; TEMP 36–37.2; O2SAT 96–100
[2024-05-15] MEDS: MORPHINE SULF INJ 10 MG/ML VIAL IVP ×3 (01:41→23:04)
[2024-05-15 05:48] LABS: Basophils % (Auto) 0 % (0-2.5); Eosinophils # (Auto) 0.1 Thou/mm3 (0.0-0.5); Eosinophils % (Auto) 1 % (0-10); Hematocrit 37.7 % (36.0-46.0); Hemoglobin 12.6 g/dL (12.0-16.0); Immature Granulocytes % (Auto) 0 % (0-0); Immature Granulocytes Auto 0.03 Thou/mm3 (0.00-0.00); Lymphocytes # (Auto) 1.3 Thou/mm3 (1.0-4.8); Lymphocytes % (Auto) 18 % (10-50); Mean Corpuscular HGB Conc 33.4 g/dl (31.0-37.0); Mean Corpuscular Hemoglobin 30.1 pg (25.0-35.0); Mean Corpuscular Volume 90 fL (80-100); Monocytes # (Auto) 0.9 Thou/mm3 (0.0-0.8); Monocytes % (Auto) 13 % (0-12); Neutrophils # (Auto) 4.7 Thou/mm3 (1.8-7.7); Neutrophils % (Auto) 67 % (37-80); Nucleated Red Blood Cell % 0 /100 WBC (0); Platelet Count 245 Thou/mm3 (140-440); Red Blood Count 4.18 Miln/mm3 (4.00-5.20); White Blood Count 7.1 Thou/mm3 (3.6-11.0)
[2024-05-15 06:10] LABS: Alanine Aminotransferase 18 U/L (10-49); Albumin, Serum 3.7 gm/dL (3.4-4.8); Albumin/Globulin Ratio 1.8 (1.2-2.2); Alkaline Phosphatase 134 U/L (46-116); Anion Gap 8 (7-16); Aspartate Amino Transferase 29 U/L (0-34); BUN/Creatinine Ratio 10 Ratio (12-20); Bilirubin,Total < 0.2 mg/dL (0.3-1.2); Blood Urea Nitrogen < 5 mg/dL (9-23); Calcium 9.2 mg/dL (8.3-10.6); Calcium (Corrected) 9.4 mg/dL (8.5-10.1); Carbon Dioxide 31.7 mMol/L (20.0-31.0); Chloride 110 mMol/L (98-107); Creatinine (Component) 0.5 mg/dL (0.6-1.3); Estimated Creatinine Clearance 81.6 mL/min (>60); Globulin 2.1 gm/dL (2.3-3.5); Glucose 116 mg/dL (74-106); Osmolality,Calculated 296 (275-295); Potassium 3.2 mMol/L (3.4-5.1); Sodium 150 mMol/L (136-145); Total Protein 5.8 gm/dL (5.7-8.2); eGFR > 60 See Note
[2024-05-15] MEDS: FAMOTIDINE 20 MG TABLET PO (08:13)
[2024-05-15] MEDS: BENZTROPINE 0.5 MG TABLET 2 MG PO (08:13)
[2024-05-15] MEDS: LACTULOSE SYRUP 20 GM/30 ML UDC 10 GM PO ×2 (08:13→20:50)
[2024-05-15] MEDS: OSELTAMIVIR 75 MG CAPSULE PO ×2 (08:13→20:50)
[2024-05-15] MEDS: ENOXAPARIN SOD INJ 40 MG/0.4 ML SYRINGE SC (08:13)
[2024-05-15] MEDS: DOCUSATE SOD 250 MG CAPSULE PO ×2 (08:13→20:50)
[2024-05-15] MEDS: Milk Of Magnesia Susp 30 ML UDC PO (08:13)
[2024-05-15] MEDS: CALCITONIN SALMON 1 SPRAY NASAL (08:14)
[2024-05-15 08:53] LABS: Phosphorous 4.5 mg/dL (2.4-5.1)
[2024-05-15] MEDS: POTASSIUM CHLORIDE 10% 20 MEQ/15 ML UDC 40 MEQ GT (09:26)
[2024-05-15] MEDS: VANCOMYCIN/NS 1 GM IVPB 200 ML IV ×2 (09:26→21:28)
--- NOTE | 2024-05-15 12:01 | PC.SS ---
Follow up note: On IV antibiotic. Pt will return [facility]
[2024-05-15] MEDS: SCOPOLAMINE 1 MG TDSY TOP (12:15)
--- NOTE | 2024-05-15 14:05 | ESPR_ITS ---
Documentation for date of: 05/15/24 Subjective Subjective Interval history: 05/15/2024: Overnight patient started on tube feeds. Patient seen and assessed in hospital bed on minimal supplemental oxygen (1-2L nasal cannula). Patient does not seem to be in any acute distress during examination. There is some residual debris around oral cavity; emphasized aspiration precautions, oral care and frequent suctioning as needed. Patient's repeat blood cultures show no growth over 24 hours; and first bottle is growing Staph. epidermidis - likely contaminant. Will continue to treat the patient for influenza and PNA with IV antibiotics and Tamiflu. Will speak to Dr. Mayo on 05/16/2024 to discuss patient's overall prognosis and feeding status. Exam Vital Signs Temp Pulse Resp BP Pulse Ox O2 Del Method O2 Flow Rate 97.7 F 81 17 127/85 H 98 Room Air 2 05/15/24 12:00 05/15/24 12:00 05/15/24 12:00 05/15/24 12:00 05/15/24 12:00 05/15/24 12:05/15/24 08:00 Narrative Exam General: Developmentally delayed, lying in bed and curled up position, appears to be bedbound, arms, hands and feet close to body HEENT: Poor dentition, dry mucous membranes, eyes wide open, microcephaly Cardiovascular: Tachycardia, radial pulses +2 bilaterally Pulmonary: Wheezing heard on auscultation GI: No tenderness to light or deep palpitation, no guarding, rigidity, rebound tenderness or distension Extremities: No presence of trace or pitting edema in lower extremities bilaterally, dorsalis pedis pulses +2 bilaterally Neuro: AAOx0, no focal motor or sensory deficits in the UE or LE bilat Objective Labs 05/16/24 04:31 05/16/24 04:31 Labs: Laboratory Results - last 24 hr 05/15/24 04:36 WBC 7.1 RBC 4.18 Hgb 12.6 Hct 37.7 MCV 90 MCH 30.1 MCHC 33.4 RDW Std Deviation 43.0 Plt Count 245 Neut % (Auto) 67 Lymph % (Auto) 18 [place] % (Auto) 13 H Eos % (Auto) 1 Baso % (Auto) 0 Neut # (Auto) 4.7 Lymph # (Auto) 1.3 [place] # (Auto) 0.9 H Eos # (Auto) 0.1 Baso # (Auto) 0.0 Immature Gran # (Auto) 0.03 H Absolute Nucleated RBC 0.00 Immature Gran % 0 Nucleated RBC % 0 Sodium 150 H Potassium 3.2 L Chloride 110 H Carbon Dioxide 31.7 H Anion Gap 8 BUN < 5 L Creatinine 0.5 L Estim Creat Clear Calc 81.6 eGFR > 60 BUN/Creatinine Ratio 10 L Glucose 116 H D Calculated Osmolality 296 H Calcium 9.2 Corrected Calcium 9.4 Phosphorus 4.5 Total Bilirubin < 0.2 L AST 29 ALT 18 Alkaline Phosphatase 134 H D Total Protein 5.8 Albumin 3.7 D Globulin 2.1 L Albumin/Globulin Ratio 1.8 Quality Measures Quality Measures none Assessment & Plan Assessment Current Active Medications: Generic Name Dose Route Start Last Admin Trade Name Freq PRN Reason Stop Dose Admin Acetaminophen 650 mg 05/12/24 22:03 Acetaminophen 325 Mg Tablet PO 06/11/24 22:02 Q6H PRN Fever >101.5 Acetaminophen 650 mg 05/13/24 10:02 05/13/24 10:21 Acetaminophen Supp 650 Mg Supp [place] 06/12/24 10:01 650 mg Q4HR PRN Administration Pain 1-3 Or Fever > 100.3 Protocol Benztropine Mesylate 2 mg 05/13/24 09:00 05/15/24 08:13 Benztropine 0.5 Mg Tablet PO 06/12/24 08:59 2 mg QDAY KADEEM Administration Calcitonin [place] 1 spray 05/13/24 09:00 05/15/24 08:14 Calcitonin, [place] Spr 3.7 Ml Btl NASAL 06/12/24 08:59 1 spray QDAY KADEEM Administration Docusate Sodium 250 mg 05/13/24 09:00 05/15/24 08:13 Docusate Sod 250 Mg Capsule PO 06/12/24 08:59 250 mg BID KADEEM Administration Protocol Enoxaparin Sodium 40 mg 05/13/24 09:00 05/15/24 08:13 Enoxaparin Sod Inj 40 Mg/0.4 Ml Syringe SC 05/27/24 08:59 40 mg QDAY KADEEM Administration Famotidine 20 mg 05/13/24 09:00 05/15/24 08:13 Famotidine 20 Mg Tablet PO 06/12/24 08:59 20 mg QDAY KADEEM Administration Vancomycin/Sodium Chloride 200 mls @ 120 mls/hr 05/15/24 10:00 05/15/24 09:26 Vancomycin/Ns 1 Gm Ivpb IV 05/22/24 09:59 120 mls/hr BID@1000,2200 KADEEM Administration Protocol Ceftriaxone Sodium 2,000 mg/ 50 mls @ 100 mls/hr 05/15/24 17:00 Sodium Chloride IV 05/22/24 16:59 DAILY@1700 [facility] Lactulose 10 gm 05/13/24 09:00 05/15/24 08:13 Lactulose Syrup 20 Gm/30 Ml Udc PO 06/12/24 08:59 10 gm BID KADEEM Administration Protocol Magnesium Hydroxide 30 ml 05/13/24 09:00 05/15/24 08:13 Milk Of Magnesia Susp 30 Ml Udc PO 06/12/24 08:59 30 ml QDAY KADEEM Administration Protocol Morphine Sulfate 1 mg 05/14/24 08:50 05/15/24 01:41 Morphine Sulf Inj 10 Mg/Ml Vial IVP 05/18/24 11:59 1 mg Q4HR PRN Administration PAIN SCALE 4-10(Mod-Sev Oseltamivir Phosphate 75 mg 05/13/24 09:00 05/15/24 08:13 Oseltamivir 75 Mg Capsule PO 05/17/24 09:01 75 mg BID KADEEM Administration Pharmacy Consult 1 each 05/14/24 09:00 Vancomycin Pharmacy To Dose 1 Each Each IV 06/13/24 08:59 QDAY PRN CONSULT Pravastatin Sodium 20 mg 05/13/24 21:00 05/14/24 21:50 Pravastatin Sodium 10 Mg Tablet PO 06/12/24 20:59 20 mg HS KADEEM Administration Scopolamine 1 mg 05/15/24 10:30 05/15/24 12:15 Scopolamine 1 Mg Tdsy TOP 06/14/24 10:29 1 mg Q3D KADEEM Administration Sennosides 1 tab 05/14/24 08:50 Senna/Docusate Sod 1 Tab Tablet PO 06/13/24 08:49 QDAY PRN CONSTIPATION Protocol Plan 59 y/o female with PMHx of developmental delay, osteoporosis, microcephaly, wheelchair-bound admitted for acute toxic respiratory failure and sepsis secondary to influenza pneumonia. #Acute hypoxic respiratory failure #Influenza pneumonia versus bacterial pneumonia, community-acquired Patient is a resident at a [facility] and apparently the senior care has been having an outbreak of influenza Patient has been having increased work of breathing and apparently when checking SpO2 at the senior care she was saturating 88?89 Brought to the ED with SIRS criteria being met, febrile (100.2), tachycardic, WBC mildly elevated; received 1L NS in ER Influenza A and B positive Unsure if patient has gotten influenza vaccine this year 1 set of blood cultures has a positive GPC now from both bottles; second set NG [address] chest abdomen/pelvis shows Pneumonia in the lingular segment left upper lobe and left base Repeat blood cultures negative Initial GPC is staph epidermidis - likely contaminant Plan: Continue Tamiflu 75 mg twice daily Continue IV Rocephin to 1 g daily Discontinued IV Vancomycin IV morphine as needed for moderate distress secondary to acutely ill status Oxygen as needed wean down as tolerated #Cystitis #Bladder calculus #Non-obstructing right renal calculus Urine analysis shows positive nitrates, positive leukocyte esterase CT abdomen pelvis shows 3.8 cm bladder calculus and bladder wall thickening up to 7.5 mm; 12 mm upper pole nonobstructing right renal calculus Dr Han, urology, consulted; appreciate recommendations Uc mixed thom Plan: Continue IV antibiotics as above Outpatient urology follow-up for lithotripsy; although, she is at high risk per Dr. Han's note Will continue to treat infection #Poor PO Intake #Hypernatremia Per [facility] staff member, patient has always had difficulty with feeding They utilize very thin fluids for her meals Failed Speech evaluation twice; follow-up reevaluation pending Dietary team contacted for recommendations for enteral feeding Sodium uptrending 141 to 150 Plan: Will call Dr. Mayo (conservator) and ask for next steps regarding patient's overall malnutrition Continue tube feeding Jevity 1.5 per dietary recommendations; increased water flushes from 35ml/hr to 50ml/hr #Elevated troponin, downtrending Difficult to discern if the patient is having any symptomatic chest pain at this time Patient did present to the ED with an elevated troponin as noted; .065 -> 0.059 EKG did show some ST changes on the lateral leads but no STEMI noted Plan: Will monitor for any acute changes #History of seizures Spoke with patient senior care customer service representative teacher who stated the patient does have history of seizures noted when she first became a resident at [place] in 1990 Patient is not on any antiseizure medications at this time and has not had any seizure activity at the facility/senior care On exam, patient is having some sidebending movement towards the left shoulder; does not seem to be seizure activity at this time Plan: Will continue to monitor and consider neurology consultation if symptoms persist #History of hiatal hernia Chronic medical condition CT abdomen pelvis shows herniation of the stomach, portions of small bowel and colon into the thorax Plan: Continue Pepcid 20 mg daily #History of osteoporosis #History of humeral fracture Chronic condition Per senior care, the patient recently had a left shoulder fracture but was not a surgical candidate upon assessment Plan: Continue home calcitonin spray #History of microcephaly #Developmental delay Stable Hospital Management: Lines: PIV Diet: Jevity 1.5 with 50ml/hr of water flushes Bowel: Milk of Magnesia, Senna GI prophylaxis: Pepcid DVT prophylaxis: Lovenox Dispo: IV antibiotics for pneumonia, treatment for influenza Code: Full Patient seen and assessed with attending Dr. Tran and senior resident Dr. Oscar Dawn, PGY-1 -- ATTESTATION: I saw and examined the patient this morning, and I agree with current management stated by the resident. Will continue to monitor patient during their stay. Patient is a 59-year-old female with past medical history of developmental delay, osteoporosis, microcephaly, wheelchair-bound that was admitted on 06/02 due to acute hypoxic respiratory failure secondary to pneumonia. Patient was also found to have a large bladder calculi measuring up to 4 cm in diameter and urology was consulted and recommended no intervention at this time due to patient's multiple comorbidities and upper and lower extremity contractures. Urine culture pending. Prognosis is guarded. Disclaimer: Despite multiple revisions, due to the dictation software being used, the document bellow may not be free of grammatical errors including phonetic/typographic errors. However, this does not deter from our commitment to providing health care in the patient's best interest in mind. Dr. Saroj Moore, PGY-3 Attending Provider Attestation/Addendum I have examined the patient, reviewed labs and imaging findings, discussed the case with the resident(s), and reviewed entered orders. I agree with the plan of care as outlined in this note, with these additional summaries/recommendations: Patient seen at bedside. No acute overnight events. Patient is nonverbal and no history can be obtained. Medical team spoke with patient's conservator yesterday who was in agreement with NG tube placement. NG tube in place and started on tube feeds plus free water flushes. HyperNa present and increased free water flushes. We will continue to treat underlying infections and monitor for improvement in appetite. Patient admitted for acute hypoxic respiratory failure secondary to influenza and superimposed bacterial component. We will continue Tamiflu and IV antibiotics.. Patient was also found to have a urinary tract infection although urine cx showed no growth. 1 out of 2 blood cxs grew staph epidermidis and most likely contamination. Patient does appear uncomfortable at times and we will continue pain management. Patient was found to have elevated troponin on admission most likely secondary to demand ischemia and has downtrended. Monitor for now. Patient has history of left femoral neck fracture 04/05/24 although was not a surgical candidate. Patient found to have large herniation of stomach, small bowel, and colon into the thorax and patient may follow-up outpatient as desired. Patient has nephrolithiasis with 12 mm upper pole nonobstructing right renal calculus and 3.8 cm bladder calculus. Urology following. Per conservator, no intervention for bladder calculus at this time. Patient also noted to have bladder wall thickening up to 7.5 millimeters which may be secondary to urinary tract infection. Overall prognosis is guarded at this time. Repeat hematology and chemistry panel in AM. Dr. Chelsea MD
[2024-05-15] MEDS: cefTRIAXone 1,000 MG in SODIUM CHLORIDE 0.9% (Popper) 50 ML 100 MG IV (17:21)
[2024-05-15] MEDS: PRAVASTATIN SODIUM 10 MG TABLET 20 MG PO (20:50)
[2024-05-16] VITALS (7 sets, daily range): BP systolic 109–155; BP diastolic 70–124; PULSE 88–114; RESP 17–22; TEMP 36.3–36.8; O2SAT 94–98
[2024-05-16] MEDS: MORPHINE SULF INJ 10 MG/ML VIAL IVP ×3 (03:35→18:25)
[2024-05-16 05:47] LABS: Basophils % (Auto) 1 % (0-2.5); Eosinophils # (Auto) 0.1 Thou/mm3 (0.0-0.5); Eosinophils % (Auto) 1 % (0-10); Hematocrit 37.3 % (36.0-46.0); Hemoglobin 12.2 g/dL (12.0-16.0); Immature Granulocytes % (Auto) 0 % (0-0); Immature Granulocytes Auto 0.02 Thou/mm3 (0.00-0.00); Lymphocytes # (Auto) 0.8 Thou/mm3 (1.0-4.8); Lymphocytes % (Auto) 9 % (10-50); Mean Corpuscular HGB Conc 32.7 g/dl (31.0-37.0); Mean Corpuscular Hemoglobin 30.3 pg (25.0-35.0); Mean Corpuscular Volume 93 fL (80-100); Monocytes # (Auto) 0.8 Thou/mm3 (0.0-0.8); Monocytes % (Auto) 9 % (0-12); Neutrophils # (Auto) 7.1 Thou/mm3 (1.8-7.7); Neutrophils % (Auto) 81 % (37-80); Nucleated Red Blood Cell % 0 /100 WBC (0); Platelet Count 268 Thou/mm3 (140-440); Red Blood Count 4.03 Miln/mm3 (4.00-5.20); White Blood Count 8.8 Thou/mm3 (3.6-11.0)
[2024-05-16 06:46] LABS: Alanine Aminotransferase 11 U/L (10-49); Albumin, Serum 3.4 gm/dL (3.4-4.8); Albumin/Globulin Ratio 1.5 (1.2-2.2); Alkaline Phosphatase 118 U/L (46-116); Anion Gap 7 (7-16); Aspartate Amino Transferase 14 U/L (0-34); BUN/Creatinine Ratio 12 Ratio (12-20); Bilirubin,Total < 0.2 mg/dL (0.3-1.2); Blood Urea Nitrogen 6 mg/dL (9-23); Calcium 8.8 mg/dL (8.3-10.6); Calcium (Corrected) 9.3 mg/dL (8.5-10.1); Carbon Dioxide 31.5 mMol/L (20.0-31.0); Chloride 108 mMol/L (98-107); Creatinine (Component) 0.5 mg/dL (0.6-1.3); Estimated Creatinine Clearance 81.6 mL/min (>60); Globulin 2.2 gm/dL (2.3-3.5); Glucose 147 mg/dL (74-106); Osmolality,Calculated 291 (275-295); Potassium 3.3 mMol/L (3.4-5.1); Sodium 146 mMol/L (136-145); Total Protein 5.6 gm/dL (5.7-8.2); eGFR > 60 See Note
[2024-05-16] MEDS: Milk Of Magnesia Susp 30 ML UDC PO (08:13)
[2024-05-16] MEDS: POTASSIUM CHLORIDE 10% 20 MEQ/15 ML UDC 40 MEQ GT (08:13)
[2024-05-16] MEDS: FAMOTIDINE 20 MG TABLET PO (08:13)
[2024-05-16] MEDS: ENOXAPARIN SOD INJ 40 MG/0.4 ML SYRINGE SC (08:13)
[2024-05-16] MEDS: BENZTROPINE 0.5 MG TABLET 2 MG PO (08:13)
[2024-05-16] MEDS: LACTULOSE SYRUP 20 GM/30 ML UDC 10 GM PO ×2 (08:13→20:02)
[2024-05-16] MEDS: DOCUSATE SOD 250 MG CAPSULE PO ×2 (08:14→20:02)
[2024-05-16] MEDS: OSELTAMIVIR 75 MG CAPSULE PO ×2 (08:14→20:02)
--- NOTE | 2024-05-16 13:03 | ESPR_ITS ---
<Statement entered by Paris Edge MD - 05/16/24 13:55> Patient was seen and examined by me personally. I have directly supervised and reviewed documentation by the team resident and agree with its findings with any exceptions or additional findings as below. Plan of care was discussed with the attending, Dr. Tran. Patient seen at bedside, appeared to be resting without any acute distress on my examination. She continues to be on 2L NC with HR in the 90-100s. Continue Tamiflu through tomorrow for influenza. Continue IV ceftriaxone for superimposed bacterial pneumonia. Mupirocin ointment for positive MRSA nares. Repeat blood cultures are negative 48 hours, suspect initial staph epidermidis to be contaminant. Patient is on NG tube feeds Jevity 1.5 at 40 ml/hr with free water flushes at 50 ml/hr due to inability to pass swallow evaluation. Sodium improved from 150 to 146. Potassium 3.3 and replaced with 40 mEq. Will plan for speech re-evaluation and consider discontinuing NG tube tomorrow. If patient fails will initate another discussion with Dr. Mayo regarding goals of care. Paris Edge, PGY-2 Documentation for date of: 05/16/24 Subjective Subjective Interval history: 05/16/2024: No acute overnight events to report. Patient continues to be at current baseline with no concerning changes in vitals or laboratory findings. Patient's repeat blood cultures are negative within 24 hours and previous blood culture which was positive for GPC's positive for Staph epidermidis; likely contaminant. Will continue to treat the patient for influenza and superimposed bacterial pneumonia with Tamiflu and IV Rocephin. Will reach out to speech therapy to reevaluate the patient and consider discontinuing NG tube on 05/17. Exam Vital Signs Temp Pulse Resp BP Pulse Ox O2 Del Method O2 Flow Rate 98.2 F 88 21 H 109/70 98 Nasal Cannula 2 05/16/24 12:05/16/24 12:05/16/24 12:05/16/24 12:05/16/24 12:05/16/24 12:05/16/24 12:00 Narrative Exam General: Developmentally delayed, lying in bed and curled up position, appears to be bedbound, arms, hands and feet close to body HEENT: Poor dentition, dry mucous membranes, eyes wide open, microcephaly Cardiovascular: Tachycardia, radial pulses +2 bilaterally Pulmonary: Wheezing heard on auscultation GI: No tenderness to light or deep palpitation, no guarding, rigidity, rebound tenderness or distension Extremities: No presence of trace or pitting edema in lower extremities bilaterally, dorsalis pedis pulses +2 bilaterally Neuro: AAOx0, no focal motor or sensory deficits in the UE or LE bilat Objective Labs 05/17/24 05:01 05/17/24 05:01 Labs: Laboratory Results - last 24 hr 05/16/24 04:31 WBC 8.8 RBC 4.03 Hgb 12.2 Hct 37.3 MCV 93 MCH 30.3 MCHC 32.7 RDW Std Deviation 45.0 Plt Count 268 Neut % (Auto) 81 H Lymph % (Auto) 9 L [place] % (Auto) 9 Eos % (Auto) 1 Baso % (Auto) 1 Neut # (Auto) 7.1 Lymph # (Auto) 0.8 L [place] # (Auto) 0.8 Eos # (Auto) 0.1 Baso # (Auto) 0.0 Immature Gran # (Auto) 0.02 H Absolute Nucleated RBC 0.00 Immature Gran % 0 Nucleated RBC % 0 Sodium 146 H Potassium 3.3 L Chloride 108 H Carbon Dioxide 31.5 H Anion Gap 7 BUN 6 L Creatinine 0.5 L Estim Creat Clear Calc 81.6 eGFR > 60 BUN/Creatinine Ratio 12 Glucose 147 H Calculated Osmolality 291 Calcium 8.8 Corrected Calcium 9.3 Total Bilirubin < 0.2 L AST 14 ALT 11 Alkaline Phosphatase 118 H Total Protein 5.6 L Albumin 3.4 Globulin 2.2 L Albumin/Globulin Ratio 1.5 Quality Measures Quality Measures none Assessment & Plan Assessment Current Active Medications: Generic Name Dose Route Start Last Admin Trade Name Freq PRN Reason Stop Dose Admin Acetaminophen 650 mg 05/12/24 22:03 Acetaminophen 325 Mg Tablet PO 06/11/24 22:02 Q6H PRN Fever >101.5 Acetaminophen 650 mg 05/13/24 10:02 05/13/24 10:21 Acetaminophen Supp 650 Mg Supp [place] 06/12/24 10:01 650 mg Q4HR PRN Administration Pain 1-3 Or Fever > 100.3 Protocol Benztropine Mesylate 2 mg 05/13/24 09:00 05/16/24 08:13 Benztropine 0.5 Mg Tablet PO 06/12/24 08:59 2 mg QDAY KADEEM Administration Calcitonin [place] 1 spray 05/13/24 09:00 05/16/24 09:55 Calcitonin, [place] Spr 3.7 Ml Btl NASAL 06/12/24 08:59 Not Given QDAY KADEEM Docusate Sodium 250 mg 05/13/24 09:00 05/16/24 08:14 Docusate Sod 250 Mg Capsule PO 06/12/24 08:59 250 mg BID KADEEM Administration Protocol Enoxaparin Sodium 40 mg 05/13/24 09:00 05/16/24 08:13 Enoxaparin Sod Inj 40 Mg/0.4 Ml Syringe SC 05/27/24 08:59 40 mg QDAY KADEEM Administration Famotidine 20 mg 05/13/24 09:00 05/16/24 08:13 Famotidine 20 Mg Tablet PO 06/12/24 08:59 20 mg QDAY KADEEM Administration Ceftriaxone Sodium 1,000 mg/ 50 mls @ 100 mls/hr 05/15/24 17:00 05/15/24 17:21 Sodium Chloride IV 05/22/24 16:59 100 mls/hr DAILY@1700 KADEEM Administration Lactulose 10 gm 05/13/24 09:00 05/16/24 08:13 Lactulose Syrup 20 Gm/30 Ml Udc PO 06/12/24 08:59 10 gm BID KADEEM Administration Protocol Magnesium Hydroxide 30 ml 05/13/24 09:00 05/16/24 08:13 Milk Of Magnesia Susp 30 Ml Udc PO 06/12/24 08:59 30 ml QDAY KADEEM Administration Protocol Morphine Sulfate 1 mg 05/14/24 08:50 05/16/24 08:36 Morphine Sulf Inj 10 Mg/Ml Vial IVP 05/18/24 11:59 1 mg Q4HR PRN Administration PAIN SCALE 4-10(Mod-Sev Mupirocin 0 gm 05/16/24 14:00 Mupirocin Oint 2% 15 Gm Tube TOP 05/23/24 13:59 TID KADEEM Oseltamivir Phosphate 75 mg 05/13/24 09:00 05/16/24 08:14 Oseltamivir 75 Mg Capsule PO 05/17/24 09:01 75 mg BID KADEEM Administration Pravastatin Sodium 20 mg 05/13/24 21:00 05/15/24 20:50 Pravastatin Sodium 10 Mg Tablet PO 06/12/24 20:59 20 mg HS KADEEM Administration Scopolamine 1 mg 05/15/24 10:30 05/15/24 12:15 Scopolamine 1 Mg Tdsy TOP 06/14/24 10:29 1 mg Q3D KADEEM Administration Sennosides 1 tab 05/14/24 08:50 Senna/Docusate Sod 1 Tab Tablet PO 06/13/24 08:49 QDAY PRN CONSTIPATION Protocol Plan 59 y/o female with PMHx of developmental delay, osteoporosis, microcephaly, wheelchair-bound admitted for acute toxic respiratory failure and sepsis secondary to influenza pneumonia. #Acute hypoxic respiratory failure #Influenza pneumonia versus bacterial pneumonia, community-acquired Patient is a resident at a [facility] and apparently the residential has been having an outbreak of influenza Patient has been having increased work of breathing and apparently when checking SpO2 at the residential she was saturating 88?89 Brought to the ED with SIRS criteria being met, febrile (100.2), tachycardic, WBC mildly elevated; received 1L NS in ER Influenza A and B positive Unsure if patient has gotten influenza vaccine this year 1 set of blood cultures has a positive GPC now from both bottles; second set NG [address] chest abdomen/pelvis shows Pneumonia in the lingular segment left upper lobe and left base Repeat blood cultures negative Initial GPC is staph epidermidis - likely contaminant Plan: Continue Tamiflu 75 mg twice daily Continue IV Rocephin to 1 g daily IV morphine as needed for moderate distress secondary to acutely ill status Oxygen as needed wean down as tolerated #Cystitis #Bladder calculus #Non-obstructing right renal calculus Urine analysis shows positive nitrates, positive leukocyte esterase CT abdomen pelvis shows 3.8 cm bladder calculus and bladder wall thickening up to 7.5 mm; 12 mm upper pole nonobstructing right renal calculus Dr Han, urology, consulted; appreciate recommendations Uc mixed thom Plan: Continue IV antibiotics as above Outpatient urology follow-up for lithotripsy; although, she is at high risk per Dr. Han's note Will continue to treat infection #Poor PO Intake #Hypernatremia Per [facility] staff member, patient has always had difficulty with feeding They utilize very thin fluids for her meals Failed Speech evaluation twice; follow-up reevaluation pending Dietary team contacted for recommendations for enteral feeding Sodium uptrending 141 to 150 Plan: Will consult speech therapy once more for reevaluation and plan on discontinuing tube feeding on 05/17 Continue tube feeding Jevity 1.5 per dietary recommendations; water flushes at 50ml/hr #Elevated troponin, downtrending Difficult to discern if the patient is having any symptomatic chest pain at this time Patient did present to the ED with an elevated troponin as noted; .065 -> 0.059 [address] did [address] some ST changes on the lateral leads but no STEMI noted Plan: Will monitor for any acute changes #History of seizures Spoke with patient residential physician representative who stated the patient does have history of seizures noted when she first became a resident at [place] in 1990 Patient is not on any antiseizure medications at this time and has not had any seizure activity at the facility/residential On exam, patient is having some sidebending movement towards the left shoulder; does not seem to be seizure activity at this time Plan: Will continue to monitor and consider neurology consultation if symptoms persist #History of hiatal hernia Chronic medical condition CT abdomen pelvis shows herniation of the stomach, portions of small bowel and colon into the thorax Plan: Continue Pepcid 20 mg daily #History of osteoporosis #History of humeral fracture Chronic condition Per residential, the patient recently had a left shoulder fracture but was not a surgical candidate upon assessment Plan: Continue home calcitonin spray #History of microcephaly #Developmental delay Stable Hospital Management: Lines: PIV Diet: Jevity 1.5 with 50ml/hr of water flushes Bowel: Milk of Magnesia, Senna GI prophylaxis: Pepcid DVT prophylaxis: Lovenox Dispo: IV antibiotics for pneumonia, treatment for influenza Code: Full Patient seen and assessed with attending Dr. Tran and senior resident Dr. Kely Dawn, PGY-1 Attending Provider Attestation/Addendum I have examined the patient, reviewed labs and imaging findings, discussed the case with the resident(s), and reviewed entered orders. I agree with the plan of care as outlined in this note, with these additional summaries/recommendations: Patient seen at bedside. No acute overnight events. Patient is nonverbal and no history can be obtained. Patient failed swallow evaluation. Medical team spoke with patients conservator and agreed to NG tube which was placed and started on tube feeds plus free water flushes. HyperNa present and improving with increased free water flushes. We will continue to treat underlying infections and monitor for improvement in appetite. If no improvement in oral intake then we will have further discussions with patients conservator about oil heaterman nutrition goals. Patient admitted for acute hypoxic respiratory failure secondary to influenza and superimposed bacterial component. We will continue Tamiflu and IV antibiotics. Patient was also found to have a urinary tract infection although urine cx showed no growth. 1 out of 2 blood cxs grew staph epidermidis and most likely contamination. Patient does appear uncomfortable at times and we will continue pain management. Patient was found to have elevated troponin on admission most likely secondary to demand ischemia and has downtrended. Monitor for now. Patient has history of left femoral neck fracture 04/05/24 although was not a surgical candidate. Patient found to have large herniation of stomach, small bowel, and colon into the thorax and patient may follow-up outpatient as desired. Patient has nephrolithiasis with 12 mm upper pole nonobstructing right renal calculus and 3.8 cm bladder calculus. Urology following. Per conservator, no intervention for bladder calculus at this time. Patient also noted to have bladder wall thickening up to 7.5 millimeters which may be secondary to urinary tract infection. Overall prognosis is guarded at this time. Repeat hematology and chemistry panel in AM. Dr. Chelsea MD
--- NOTE | 2024-05-16 13:33 | PCS.ST ---
NPO at this time with recommendation to continue with alternative means of nutrition. Pt unable to form bolus or follow direction to swallow.
[2024-05-16] MEDS: MUPIROCIN OINT 2% 15 GM TUBE TOP ×2 (15:10→22:41)
[2024-05-16] MEDS: cefTRIAXone 1,000 MG in SODIUM CHLORIDE 0.9% (Popper) 50 ML 100 MG IV (16:07)
[2024-05-16] MEDS: PRAVASTATIN SODIUM 10 MG TABLET 20 MG PO (20:02)
[2024-05-17] VITALS (9 sets, daily range): BP systolic 112–146; BP diastolic 65–109; PULSE 83–111; RESP 16–21; TEMP 36.1–36.8; O2SAT 95–100
[2024-05-17] MEDS: MUPIROCIN OINT 2% 15 GM TUBE TOP ×3 (05:19→21:36)
[2024-05-17 06:28] LABS: Basophils % (Auto) 1 % (0-2.5); Eosinophils # (Auto) 0.3 Thou/mm3 (0.0-0.5); Eosinophils % (Auto) 3 % (0-10); Hematocrit 37.8 % (36.0-46.0); Hemoglobin 12.2 g/dL (12.0-16.0); Immature Granulocytes % (Auto) 1 % (0-0); Immature Granulocytes Auto 0.04 Thou/mm3 (0.00-0.00); Lymphocytes # (Auto) 1.3 Thou/mm3 (1.0-4.8); Lymphocytes % (Auto) 15 % (10-50); Mean Corpuscular HGB Conc 32.3 g/dl (31.0-37.0); Mean Corpuscular Hemoglobin 30.1 pg (25.0-35.0); Mean Corpuscular Volume 93 fL (80-100); Monocytes # (Auto) 0.9 Thou/mm3 (0.0-0.8); Monocytes % (Auto) 10 % (0-12); Neutrophils # (Auto) 6.1 Thou/mm3 (1.8-7.7); Neutrophils % (Auto) 71 % (37-80); Nucleated Red Blood Cell % 0 /100 WBC (0); Platelet Count 300 Thou/mm3 (140-440); RDW Standard Deviation 45.1 fL (36.4-46.3); Red Blood Count 4.05 Miln/mm3 (4.00-5.20); White Blood Count 8.6 Thou/mm3 (3.6-11.0)
[2024-05-17 07:06] LABS: Alanine Aminotransferase 16 U/L (10-49); Albumin, Serum 3.4 gm/dL (3.4-4.8); Albumin/Globulin Ratio 1.6 (1.2-2.2); Alkaline Phosphatase 106 U/L (46-116); Anion Gap 5 (7-16); Aspartate Amino Transferase 34 U/L (0-34); BUN/Creatinine Ratio 16 Ratio (12-20); Bilirubin,Total < 0.2 mg/dL (0.3-1.2); Blood Urea Nitrogen 8 mg/dL (9-23); Calcium 8.7 mg/dL (8.3-10.6); Calcium (Corrected) 9.2 mg/dL (8.5-10.1); Carbon Dioxide 31.9 mMol/L (20.0-31.0); Chloride 106 mMol/L (98-107); Creatinine (Component) 0.5 mg/dL (0.6-1.3); Estimated Creatinine Clearance 81.6 mL/min (>60); Globulin 2.1 gm/dL (2.3-3.5); Glucose 118 mg/dL (74-106); Osmolality,Calculated 284 (275-295); Sodium 143 mMol/L (136-145); Total Protein 5.5 gm/dL (5.7-8.2); eGFR > 60 See Note
[2024-05-17] MEDS: LACTULOSE SYRUP 20 GM/30 ML UDC 10 GM PO ×2 (08:38→20:25)
[2024-05-17] MEDS: CALCITONIN SALMON 1 SPRAY NASAL (08:38)
[2024-05-17] MEDS: DOCUSATE SOD 250 MG CAPSULE PO ×2 (08:39→20:25)
[2024-05-17] MEDS: Milk Of Magnesia Susp 30 ML UDC PO (08:39)
[2024-05-17] MEDS: FAMOTIDINE 20 MG TABLET PO (08:39)
[2024-05-17] MEDS: MORPHINE SULF INJ 10 MG/ML VIAL IVP ×3 (08:39→22:04)
[2024-05-17] MEDS: OSELTAMIVIR 75 MG CAPSULE PO (08:40)
[2024-05-17] MEDS: BENZTROPINE 0.5 MG TABLET 2 MG PO (08:40)
[2024-05-17] MEDS: ENOXAPARIN SOD INJ 40 MG/0.4 ML SYRINGE SC (08:40)
[2024-05-17] MEDS: KETOROLAC INJ 30 MG/ML VIAL 15 MG IVP (10:13)
--- NOTE | 2024-05-17 14:41 | PD.RESPRO ---
Documentation for date of: 05/17/24 Subjective Subjective Interval history: No acute events overnight.?Patient seen and examined at bedside this AM.?Patient appeared not in distress at the time of examination, however later in the day patient seemed to be wailing therefore dose of ketorolac 15 mg IV was given for likely pain. Per speech re-evaluation today, patient was completely unable to take any PO, reporting that the patient would either turn away or lean forward and any food would drop out of the mouth. Attempted with spoon feed further within the mouth as suggested by caregivers, but unsuccessful at getting the patient to take.?Will have goals of care discussion with Dr. Mayo tomorrow, Saturday to discuss potential plan for hospice, since it was discussed earlier that patient is not ideal PEG tube candidate. Labs and vitals were reviewed.?Electrolytes normalized. Second set of blood cultures negative past-48 hours. Patient is on 2L O2. Continues tube feeds at 40 ml/hr. Review of systems otherwise negative except what is mentioned above. Exam Vital Signs Temp Pulse Resp BP Pulse Ox O2 Del Method O2 Flow Rate 97.6 F 102 H 16 119/92 H 95 Nasal Cannula 1 05/17/24 11:45 05/17/24 11:45 05/17/24 11:45 05/17/24 11:45 05/17/24 11:45 05/17/24 11:45 05/17/24 11:45 Narrative Exam General: Developmentally delayed, lying in bed and curled up position, appears to be bedbound, arms, hands and feet close to body HEENT: Poor dentition, dry mucous membranes, eyes wide open, microcephaly Cardiovascular: Tachycardia, radial pulses +2 bilaterally Pulmonary: Wheezing heard on auscultation GI: No tenderness to light or deep palpitation, no guarding, rigidity, rebound tenderness or distension Extremities: No presence of trace or pitting edema in lower extremities bilaterally, dorsalis pedis pulses +2 bilaterally Neuro: AAOx0, no focal motor or sensory deficits in the UE or LE bilat Objective Labs 05/18/24 04:50 05/18/24 04:50 Labs: Laboratory Results - last 24 hr 05/17/24 05:01 WBC 8.6 RBC 4.05 Hgb 12.2 Hct 37.8 MCV 93 MCH 30.1 MCHC 32.3 RDW Std Deviation 45.1 Plt Count 300 D Neut % (Auto) 71 Lymph % (Auto) 15 [place] % (Auto) 10 Eos % (Auto) 3 Baso % (Auto) 1 Neut # (Auto) 6.1 Lymph # (Auto) 1.3 [place] # (Auto) 0.9 H Eos # (Auto) 0.3 Baso # (Auto) 0.0 Immature Gran # (Auto) 0.04 H Absolute Nucleated RBC 0.00 Immature Gran % 1 H Nucleated RBC % 0 Sodium 143 Potassium 4.0 D Chloride 106 Carbon Dioxide 31.9 H Anion Gap 5 L BUN 8 L Creatinine 0.5 L Estim Creat Clear Calc 81.6 eGFR > 60 BUN/Creatinine Ratio 16 Glucose 118 H Calculated Osmolality 284 Calcium 8.7 Corrected Calcium 9.2 Total Bilirubin < 0.2 L AST 34 ALT 16 Alkaline Phosphatase 106 Total Protein 5.5 L Albumin 3.4 Globulin 2.1 L Albumin/Globulin Ratio 1.6 Quality Measures Quality Measures none Assessment & Plan Assessment Current Active Medications: Generic Name Dose Route Start Last Admin Trade Name Freq PRN Reason Stop Dose Admin Acetaminophen 650 mg 05/13/24 10:02 05/13/24 10:21 Acetaminophen Supp 650 Mg Supp [place] 06/12/24 10:01 650 mg Q4HR PRN Administration Pain 1-3 Or Fever > 100.3 Protocol Acetaminophen 650 mg 05/17/24 10:08 Acetaminophen 325 Mg Tablet PO 06/11/24 22:02 Q6H PRN Fever >100.4 or Pain(1-3) Benztropine Mesylate 2 mg 05/13/24 09:00 05/17/24 08:40 Benztropine 0.5 Mg Tablet PO 06/12/24 08:59 2 mg QDAY KADEEM Administration Calcitonin [place] 1 spray 05/13/24 09:00 05/17/24 08:38 Calcitonin, [place] Spr 3.7 Ml Btl NASAL 06/12/24 08:59 1 spray QDAY KADEEM Administration Docusate Sodium 250 mg 05/13/24 09:00 05/17/24 08:39 Docusate Sod 250 Mg Capsule PO 06/12/24 08:59 250 mg BID KADEEM Administration Protocol Enoxaparin Sodium 40 mg 05/13/24 09:00 05/17/24 08:40 Enoxaparin Sod Inj 40 Mg/0.4 Ml Syringe SC 05/27/24 08:59 40 mg QDAY KADEEM Administration Famotidine 20 mg 05/13/24 09:00 05/17/24 08:39 Famotidine 20 Mg Tablet PO 06/12/24 08:59 20 mg QDAY KADEEM Administration Ceftriaxone Sodium 1,000 mg/ 50 mls @ 100 mls/hr 05/15/24 17:00 05/16/24 16:07 Sodium Chloride IV 05/22/24 16:59 100 mls/hr DAILY@1700 KADEEM Administration Lactulose 10 gm 05/13/24 09:00 05/17/24 08:38 Lactulose Syrup 20 Gm/30 Ml Udc PO 06/12/24 08:59 10 gm BID KADEEM Administration Protocol Magnesium Hydroxide 30 ml 05/13/24 09:00 05/17/24 08:39 Milk Of Magnesia Susp 30 Ml Udc PO 06/12/24 08:59 30 ml QDAY KADEEM Administration Protocol Morphine Sulfate 1 mg 05/14/24 08:50 05/17/24 13:35 Morphine Sulf Inj 10 Mg/Ml Vial IVP 05/18/24 11:59 1 mg Q4HR PRN Administration PAIN SCALE 4-10(Mod-Sev Mupirocin 0 gm 05/16/24 14:00 05/17/24 13:53 Mupirocin Oint 2% 15 Gm Tube TOP 05/23/24 13:59 1 applicatio TID KADEEM Administration Pravastatin Sodium 20 mg 05/13/24 21:00 05/16/24 20:02 Pravastatin Sodium 10 Mg Tablet PO 06/12/24 20:59 20 mg HS KADEEM Administration Scopolamine 1 mg 05/15/24 10:30 05/15/24 12:15 Scopolamine 1 Mg Tdsy TOP 06/14/24 10:29 1 mg Q3D KADEEM Administration Sennosides 1 tab 05/14/24 08:50 Senna/Docusate Sod 1 Tab Tablet PO 06/13/24 08:49 QDAY PRN CONSTIPATION Protocol Plan 59 y/o female with PMHx of developmental delay, osteoporosis, microcephaly, wheelchair-bound admitted for acute toxic respiratory failure and sepsis secondary to influenza pneumonia. #Acute hypoxic respiratory failure #Influenza pneumonia versus bacterial pneumonia, community-acquired Patient is a resident at a [facility] longterm and apparently the longterm has been having an outbreak of influenza Patient has been having increased work of breathing and apparently when checking SpO2 at the longterm she was saturating 88?89 Brought to the ED with SIRS criteria being met, febrile (100.2), tachycardic, WBC mildly elevated; received 1L NS in ER Influenza A and B positive Unsure if patient has gotten influenza vaccine this year 1 set of blood cultures has a positive GPC now from both bottles; second set NG [address] chest abdomen/pelvis shows Pneumonia in the lingular segment left upper lobe and left base Repeat blood cultures negative Initial GPC is staph epidermidis - likely contaminant Plan: Continue Tamiflu 75 mg twice daily Continue IV Rocephin to 1 g daily IV morphine as needed for moderate distress secondary to acutely ill status Oxygen as needed wean down as tolerated #Cystitis #Bladder calculus #Non-obstructing right renal calculus Urine analysis shows positive nitrates, positive leukocyte esterase CT abdomen pelvis shows 3.8 cm bladder calculus and bladder wall thickening up to 7.5 mm; 12 mm upper pole nonobstructing right renal calculus Dr Han, urology, consulted; appreciate recommendations Uc mixed thom Plan: Continue IV antibiotics as above Outpatient urology follow-up for lithotripsy; although, she is at high risk per Dr. Han's note Will continue to treat infection #Poor PO Intake #Hypernatremia Per Care Home staff member, patient has always had difficulty with feeding They utilize very thin fluids for her meals Failed Speech evaluation twice; follow-up reevaluation pending Dietary team contacted for recommendations for enteral feeding Sodium uptrending 141 to 150 Plan: Speech therapy recommends hospice given the patient is continuing to fail re-evaluations for swallow and PEG not option Will discuss with Dr. 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 who stated the patient does have history of seizures noted when she first became a resident at [facility] in 1990 Patient is not on any antiseizure medications at this time and has not had any seizure activity at the facility/longterm On exam, patient is having some sidebending movement towards the left shoulder; does not seem to be seizure activity at this time Plan: Will continue to monitor and consider neurology consultation if symptoms persist #History of hiatal hernia Chronic medical condition CT abdomen pelvis shows herniation of the stomach, portions of small bowel and colon into the thorax Plan: Continue Pepcid 20 mg daily #History of osteoporosis #History of humeral fracture Chronic condition Per longterm, the patient recently had a left shoulder fracture but was not a surgical candidate upon assessment Plan: Continue home calcitonin spray #History of microcephaly #Developmental delay Stable Hospital Management: Lines: PIV Diet: Jevity 1.5 with 50ml/hr of water flushes Bowel: Milk of Magnesia, Senna GI prophylaxis: Pepcid DVT prophylaxis: Lovenox Dispo: IV antibiotics for pneumonia, treatment for influenza Code: Full Patient plan of care was discussed with the attending physician, Dr. Tran. Paris Edge, PGY-2 Attending Provider Attestation/Addendum I have examined the patient, reviewed labs and imaging findings, discussed the case with the resident(s), and reviewed entered orders. I agree with the plan of care as outlined in this note, with these additional summaries/recommendations: Patient seen at bedside. No acute overnight events. Patient is nonverbal and no history can be obtained. Unfortunately patient failed swallow evaluation again today. We will continue NG tube for tube feeds and free water flushes. Prognosis is guarded as patient has not been able to take any oral intake. We will discuss with patient's conservator about goals of care moving forward. HyperNa present and improving with increased free water flushes. We will continue to treat underlying infections and monitor for improvement in appetite. Patient admitted for acute hypoxic respiratory failure secondary to influenza and superimposed bacterial component. Patient to complete Tamiflu and antibiotics today. Patient was also found to have a urinary tract infection although urine cx showed no growth. 1 out of 2 blood cxs grew staph epidermidis and most likely contamination. Patient does appear uncomfortable at times and we will continue pain management. Patient was found to have elevated troponin on admission most likely secondary to demand ischemia and has downtrended. Monitor for now. Patient has history of left femoral neck fracture 04/05/24 although was not a surgical candidate. Patient found to have large herniation of stomach, small bowel, and colon into the thorax and patient may follow-up outpatient as desired. Patient has nephrolithiasis with 12 mm upper pole nonobstructing right renal calculus and 3.8 cm bladder calculus. Urology following. Per conservator, no intervention for bladder calculus at this time. Patient also noted to have bladder wall thickening up to 7.5 millimeters which may be secondary to urinary tract infection. Overall prognosis is guarded at this time. Repeat hematology and chemistry panel in AM. Dr. Chelsea MD
[2024-05-17] MEDS: cefTRIAXone 1,000 MG in SODIUM CHLORIDE 0.9% (Popper) 50 ML 100 MG IV (16:30)
[2024-05-17] MEDS: PRAVASTATIN SODIUM 10 MG TABLET 20 MG PO (20:25)
[2024-05-18] VITALS (8 sets, daily range): BP systolic 118–155; BP diastolic 75–120; PULSE 70–113; RESP 16–22; TEMP 36.1–36.8; O2SAT 93–100; BMI 19.2
[2024-05-18] MEDS: MUPIROCIN OINT 2% 15 GM TUBE TOP ×3 (05:15→21:25)
[2024-05-18] MEDS: MORPHINE SULF INJ 10 MG/ML VIAL IVP (05:25)
--- NOTE | 2024-05-18 06:21 | PC.NURSE ---
Notified hospitalist that the patient is having a lot of bowel movement throughout the night (total of 5). upon assessment, patients perineal area is reddened and patient's bottom is also reddened. Serjio williamson was applied to area. Also notified hospitalist that patient is taking MOM, Colace, Lactulouse scheduled. Per MD, will review patient's chart and will make adjustments.
[2024-05-18 06:29] LABS: Basophils # (Auto) 0.1 Thou/mm3 (0.0-0.2); Basophils % (Auto) 1 % (0-2.5); Eosinophils # (Auto) 0.4 Thou/mm3 (0.0-0.5); Eosinophils % (Auto) 5 % (0-10); Hematocrit 39.1 % (36.0-46.0); Hemoglobin 12.5 g/dL (12.0-16.0); Immature Granulocytes % (Auto) 1 % (0-0); Immature Granulocytes Auto 0.06 Thou/mm3 (0.00-0.00); Lymphocytes # (Auto) 1.4 Thou/mm3 (1.0-4.8); Lymphocytes % (Auto) 16 % (10-50); Mean Corpuscular Hemoglobin 29.6 pg (25.0-35.0); Mean Corpuscular Volume 92 fL (80-100); Monocytes # (Auto) 0.8 Thou/mm3 (0.0-0.8); Monocytes % (Auto) 10 % (0-12); Neutrophils % (Auto) 69 % (37-80); Nucleated Red Blood Cell % 0 /100 WBC (0); Platelet Count 391 Thou/mm3 (140-440); RDW Standard Deviation 44.5 fL (36.4-46.3); Red Blood Count 4.23 Miln/mm3 (4.00-5.20); White Blood Count 8.8 Thou/mm3 (3.6-11.0)
[2024-05-18 07:11] LABS: Alanine Aminotransferase 19 U/L (10-49); Albumin, Serum 3.6 gm/dL (3.4-4.8); Anion Gap 8 (7-16); Aspartate Amino Transferase 25 U/L (0-34); BUN/Creatinine Ratio 22 Ratio (12-20); Bilirubin,Total < 0.2 mg/dL (0.3-1.2); Blood Urea Nitrogen 11 mg/dL (9-23); Calcium 9.6 mg/dL (8.3-10.6); Calcium (Corrected) 9.9 mg/dL (8.5-10.1); Chloride 104 mMol/L (98-107); Creatinine (Component) 0.5 mg/dL (0.6-1.3); Estimated Creatinine Clearance 81.6 mL/min (>60); Glucose 110 mg/dL (74-106); Osmolality,Calculated 287 (275-295); Potassium 4.2 mMol/L (3.4-5.1); Sodium 144 mMol/L (136-145); Total Protein 6.1 gm/dL (5.7-8.2); eGFR > 60 See Note
[2024-05-18 07:12] LABS: Albumin/Globulin Ratio 1.4 (1.2-2.2); Alkaline Phosphatase 108 U/L (46-116); Globulin 2.5 gm/dL (2.3-3.5)
[2024-05-18] MEDS: DOCUSATE SOD 250 MG CAPSULE PO ×2 (08:23→21:05)
[2024-05-18] MEDS: ACETAMINOPHEN 325 MG TABLET 650 MG PO (08:23)
[2024-05-18] MEDS: BENZTROPINE 0.5 MG TABLET 2 MG PO (08:23)
[2024-05-18] MEDS: ENOXAPARIN SOD INJ 40 MG/0.4 ML SYRINGE SC (08:24)
[2024-05-18] MEDS: FAMOTIDINE 20 MG TABLET PO (08:24)
[2024-05-18] MEDS: CALCITONIN SALMON 1 SPRAY NASAL (08:46)
--- NOTE | 2024-05-18 10:16 | PC.SS ---
Follow up note: Pt did not pass speech evaluation. Physicians will speak with Dr. Mayo. Pt will return to senior care.
[2024-05-18] MEDS: SCOPOLAMINE 1 MG TDSY TOP (10:44)
--- NOTE | 2024-05-18 13:46 | ESPR_ITS ---
<Statement entered by Paris Edge MD - 05/19/24 08:21> Patient was seen and examined by me personally. I have directly supervised and reviewed documentation by the team resident and agree with its findings with any exceptions or additional findings as below. Plan of care was discussed with the attending, Dr. Tran. Dr. Mayo was reached today and recommended caregiver from the patient's group home come to attempt feeding the patient as she is still failing swallow evaluation. Tube feedings will be continued through NG. Paris Edge, PGY-2 Documentation for date of: 05/18/24 Subjective Subjective Interval history: 05/18/2024: No acute overnight events to report. Patient seen and examined remains at current baseline with tube feeds and satting 100% on minimal omental oxygenation via nasal cannula. Speech evaluation was unfortunately unsuccessful as the patient is not able to eat normally. Touched base with Dr. Mayo regarding the patient's goals of care and our recommendation for hospice; moreover, Dr. Mayo (the patient's conservator) will be reading his chart about the patient and get back to us. Exam Vital Signs Temp Pulse Resp BP Pulse Ox O2 Del Method O2 Flow Rate 98.0 F 113 H 18 155/120 H 100 Room Air 2 05/18/24 08:00 05/18/24 08:00 05/18/24 08:00 05/18/24 08:00 05/18/24 08:00 05/18/24 08:00 05/18/24 04:00 Narrative Exam General: Developmentally delayed, lying in bed and curled up position, appears to be bedbound, arms, hands and feet close to body HEENT: Poor dentition, dry mucous membranes, eyes wide open, microcephaly Cardiovascular: Tachycardia, radial pulses +2 bilaterally Pulmonary: Wheezing heard on auscultation GI: No tenderness to light or deep palpitation, no guarding, rigidity, rebound tenderness or distension Extremities: No presence of trace or pitting edema in lower extremities bilaterally, dorsalis pedis pulses +2 bilaterally Neuro: AAOx0, no focal motor or sensory deficits in the UE or LE bilat Objective Labs 05/18/24 04:50 05/18/24 04:50 Labs: Laboratory Results - last 24 hr 05/18/24 04:50 WBC 8.8 RBC 4.23 Hgb 12.5 Hct 39.1 MCV 92 MCH 29.6 MCHC 32.0 RDW Std Deviation 44.5 Plt Count 391 D Neut % (Auto) 69 Lymph % (Auto) 16 [place] % (Auto) 10 Eos % (Auto) 5 Baso % (Auto) 1 Neut # (Auto) 6.0 Lymph # (Auto) 1.4 [place] # (Auto) 0.8 Eos # (Auto) 0.4 Baso # (Auto) 0.1 Immature Gran # (Auto) 0.06 H Absolute Nucleated RBC 0.00 Immature Gran % 1 H Nucleated RBC % 0 Sodium 144 Potassium 4.2 Chloride 104 Carbon Dioxide 32.0 H Anion Gap 8 BUN 11 Creatinine 0.5 L Estim Creat Clear Calc 81.6 eGFR > 60 BUN/Creatinine Ratio 22 H Glucose 110 H Calculated Osmolality 287 Calcium 9.6 Corrected Calcium 9.9 Total Bilirubin < 0.2 L AST 25 ALT 19 Alkaline Phosphatase 108 Total Protein 6.1 Albumin 3.6 Globulin 2.5 Albumin/Globulin Ratio 1.4 Quality Measures Quality Measures none Assessment & Plan Assessment Current Active Medications: Generic Name Dose Route Start Last Admin Trade Name Freq PRN Reason Stop Dose Admin Acetaminophen 650 mg 05/13/24 10:02 05/13/24 10:21 Acetaminophen Supp 650 Mg Supp [place] 06/12/24 10:01 650 mg Q4HR PRN Administration Pain 1-3 Or Fever > 100.3 Protocol Acetaminophen 650 mg 05/17/24 10:08 05/18/24 08:23 Acetaminophen 325 Mg Tablet PO 06/11/24 22:02 650 mg Q6H PRN Administration Fever >100.4 or Pain(1-3) Benztropine Mesylate 2 mg 05/13/24 09:00 05/18/24 08:23 Benztropine 0.5 Mg Tablet PO 06/12/24 08:59 2 mg QDAY KADEEM Administration Calcitonin [place] 1 spray 05/13/24 09:00 05/18/24 08:46 Calcitonin, [place] Spr 3.7 Ml Btl NASAL 06/12/24 08:59 1 spray QDAY KADEEM Administration Docusate Sodium 250 mg 05/13/24 09:00 05/18/24 08:23 Docusate Sod 250 Mg Capsule PO 06/12/24 08:59 250 mg BID KADEEM Administration Protocol Enoxaparin Sodium 40 mg 05/13/24 09:00 05/18/24 08:24 Enoxaparin Sod Inj 40 Mg/0.4 Ml Syringe SC 05/27/24 08:59 40 mg QDAY KADEEM Administration Famotidine 20 mg 05/13/24 09:00 05/18/24 08:24 Famotidine 20 Mg Tablet PO 06/12/24 08:59 20 mg QDAY KADEEM Administration Ceftriaxone Sodium 1,000 mg/ 50 mls @ 100 mls/hr 05/15/24 17:00 05/17/24 16:30 Sodium Chloride IV 05/22/24 16:59 100 mls/hr DAILY@1700 KADEEM Administration Lactulose 10 gm 05/18/24 06:17 Lactulose Syrup 20 Gm/30 Ml Udc PO 06/12/24 08:59 BID PRN constipation Protocol Magnesium Hydroxide 30 ml 05/18/24 06:17 Milk Of Magnesia Susp 30 Ml Udc PO 06/12/24 08:59 QDAY PRN Constipation Protocol Mupirocin 0 gm 05/16/24 14:00 05/18/24 05:15 Mupirocin Oint 2% 15 Gm Tube TOP 05/23/24 13:59 1 applicatio TID KADEEM Administration Pravastatin Sodium 20 mg 05/13/24 21:00 05/17/24 20:25 Pravastatin Sodium 10 Mg Tablet PO 06/12/24 20:59 20 mg HS KADEEM Administration Scopolamine 1 mg 05/15/24 10:30 05/18/24 10:44 Scopolamine 1 Mg Tdsy TOP 06/14/24 10:29 1 mg Q3D KADEEM Administration Sennosides 1 tab 05/14/24 08:50 Senna/Docusate Sod 1 Tab Tablet PO 06/13/24 08:49 QDAY PRN CONSTIPATION Protocol Plan 59 y/o female with PMHx of developmental delay, osteoporosis, microcephaly, wheelchair-bound admitted for acute toxic respiratory failure and sepsis secondary to influenza pneumonia. #Acute hypoxic respiratory failure #Influenza pneumonia versus bacterial pneumonia, community-acquired Patient is a resident at a [facility] alf and apparently the alf has been having an outbreak of influenza Patient has been having increased work of breathing and apparently when checking SpO2 at the alf she was saturating 88?89 Brought to the ED with SIRS criteria being met, febrile (100.2), tachycardic, WBC mildly elevated; received 1L NS in ER Influenza A and B positive Unsure if patient has gotten influenza vaccine this year 1 set of blood cultures has a positive GPC now from both bottles; second set NG [address] chest abdomen/pelvis shows Pneumonia in the lingular segment left upper lobe and left base Repeat blood cultures negative Initial GPC is staph epidermidis - likely contaminant Completed Tamiflu regimen Plan: Continue IV Rocephin to 1 g daily IV morphine as needed for moderate distress secondary to acutely ill status Oxygen as needed wean down as tolerated #Cystitis #Bladder calculus #Non-obstructing right renal calculus Urine analysis shows positive nitrates, positive leukocyte esterase CT abdomen pelvis shows 3.8 cm bladder calculus and bladder wall thickening up to 7.5 mm; 12 mm upper pole nonobstructing right renal calculus Dr Han, urology, consulted; appreciate recommendations Uc mixed thom Plan: Continue IV antibiotics as above Outpatient urology follow-up for lithotripsy; although, she is at high risk per Dr. Han's note Will continue to treat infection #Poor PO Intake #Hypernatremia Per Prison staff member, patient has always had difficulty with feeding They utilize very thin fluids for her meals Failed Speech evaluation twice; follow-up reevaluation pending Dietary team contacted for recommendations for enteral feeding Sodium uptrending 141 to 150 Plan: Speech therapy recommends hospice given the patient is continuing to fail re- evaluations for swallow and PEG not option Discussed with Dr. Mayo on Saturday regarding failure to thrive and hospice; Dr. Mayo will get back to us Continue tube feeding Jevity 1.5 per dietary recommendations at 40 ml/hr; water flushes at 50ml/hr for now #Elevated troponin, downtrending Difficult to discern if the patient is having any symptomatic chest pain at this time Patient did present to the ED with an elevated troponin as noted; .065 -> 0.059 [address] did [address] some ST changes on the lateral leads but no STEMI noted Plan: Will monitor for any acute changes #History of seizures Spoke with patient alf outside sales representative who stated the patient does have history of seizures noted when she first became a resident at [facility] in 1990 Patient is not on any antiseizure medications at this time and has not had any seizure activity at the facility/alf On exam, patient is having some sidebending movement towards the left shoulder; does not seem to be seizure activity at this time Plan: Will continue to monitor and consider neurology consultation if symptoms persist #History of hiatal hernia Chronic medical condition CT abdomen pelvis shows herniation of the stomach, portions of small bowel and colon into the thorax Plan: Continue Pepcid 20 mg daily #History of osteoporosis #History of humeral fracture Chronic condition Per alf, the patient recently had a left shoulder fracture but was not a surgical candidate upon assessment Plan: Continue home calcitonin spray #History of microcephaly #Developmental delay Stable Hospital Management: Lines: PIV Diet: Jevity 1.5 with 50ml/hr of water flushes Bowel: Milk of Magnesia, Senna GI prophylaxis: Pepcid DVT prophylaxis: Lovenox Dispo: IV antibiotics for pneumonia, treatment for influenza Code: Full Patient seen and assessed with attending Dr. Tran and senior resident Dr. Kely Dawn, PGY-1 Attending Provider Attestation/Addendum I have examined the patient, reviewed labs and imaging findings, discussed the case with the resident(s), and reviewed entered orders. I agree with the plan of care as outlined in this note, with these additional summaries/recommendations: Patient seen at bedside. No acute overnight events. Unfortunately patient continues to fail swallow evaluation. We will continue NG tube for tube feeds and free water flushes. Prognosis is guarded as patient has not been able to take any oral intake. We will discuss with patient's conservator about goals of care moving forward. HyperNa now resolved with increased free water flushes, we will continue to adjust as needed. Patient admitted for acute hypoxic respiratory failure secondary to influenza and superimposed bacterial component. Patient has completed Tamiflu. Patient to complete antibiotic course today. Patient was also found to have a urinary tract infection although urine cx showed no growth. 1 out of 2 blood cxs grew staph epidermidis and most likely contamination. Patient does appear uncomfortable at times most likely secondary to history of left humeral neck fracture and was deemed not a surgical candidate at that time. We will continue pain management as needed. Patient was found to have elevated troponin on admission most likely secondary to demand ischemia and has downtrended. Monitor for now. Patient found to have large herniation of stomach, small bowel, and colon into the thorax and patient may follow-up outpatient as desired. Patient has nephrolithiasis with 12 mm upper pole nonobstructing right renal calculus and 3.8 cm bladder calculus. Urology following. Per conservator, no intervention for bladder calculus at this time. Patient also noted to have bladder wall thickening up to 7.5 millimeters which may be secondary to urinary tract infection. Overall prognosis is guarded at this time. Patient is not safe to discharge at this time given her failure to thrive and lack of oral intake. Repeat hematology and chemistry panel in AM. Dr. Chelsea MD
--- NOTE | 2024-05-18 14:32 | PCS.ST ---
Dr. Dawn, at the patient's conservator Dr. Mayo request, ask ST to meet with personnel from [facility] to attempt one more time a swallow evaluation. It was agreed with Cecilia, van owner operator of the living facility, that an employee will be at the patient's room tomorrow (05/18) @ 9:00.
[2024-05-18] MEDS: cefTRIAXone 1,000 MG in SODIUM CHLORIDE 0.9% (Popper) 50 ML 100 MG IV (18:32)
[2024-05-18] MEDS: PRAVASTATIN SODIUM 10 MG TABLET 20 MG PO (21:05)
[2024-05-19] VITALS: BP 162/87; PULSE 68; RESP 16; TEMP 36.2; O2SAT 97
[2024-05-19 04:00] VITALS: BP 144/82; PULSE 78; RESP 16; TEMP 36.2; O2SAT 97
[2024-05-19 05:57] LABS: Basophils # (Auto) 0.1 Thou/mm3 (0.0-0.2); Basophils % (Auto) 1 % (0-2.5); Eosinophils # (Auto) 0.3 Thou/mm3 (0.0-0.5); Eosinophils % (Auto) 3 % (0-10); Hematocrit 38.1 % (36.0-46.0); Hemoglobin 12.2 g/dL (12.0-16.0); Immature Granulocytes % (Auto) 1 % (0-0); Immature Granulocytes Auto 0.08 Thou/mm3 (0.00-0.00); Lymphocytes # (Auto) 1.3 Thou/mm3 (1.0-4.8); Lymphocytes % (Auto) 11 % (10-50); Mean Corpuscular Hemoglobin 29.3 pg (25.0-35.0); Mean Corpuscular Volume 92 fL (80-100); Monocytes # (Auto) 0.9 Thou/mm3 (0.0-0.8); Monocytes % (Auto) 8 % (0-12); Neutrophils # (Auto) 9.3 Thou/mm3 (1.8-7.7); Neutrophils % (Auto) 78 % (37-80); Nucleated Red Blood Cell % 0 /100 WBC (0); Platelet Count 404 Thou/mm3 (140-440); RDW Standard Deviation 43.4 fL (36.4-46.3); Red Blood Count 4.16 Miln/mm3 (4.00-5.20)
[2024-05-19] MEDS: MUPIROCIN OINT 2% 15 GM TUBE TOP ×2 (06:13→13:11)
[2024-05-19 06:33] LABS: Alanine Aminotransferase 14 U/L (10-49); Albumin, Serum 3.7 gm/dL (3.4-4.8); Albumin/Globulin Ratio 1.6 (1.2-2.2); Alkaline Phosphatase 102 U/L (46-116); Anion Gap 5 (7-16); Aspartate Amino Transferase 21 U/L (0-34); BUN/Creatinine Ratio 24 Ratio (12-20); Bilirubin,Total < 0.2 mg/dL (0.3-1.2); Blood Urea Nitrogen 12 mg/dL (9-23); Calcium 9.4 mg/dL (8.3-10.6); Calcium (Corrected) 9.6 mg/dL (8.5-10.1); Carbon Dioxide 32.5 mMol/L (20.0-31.0); Chloride 104 mMol/L (98-107); Creatinine (Component) 0.5 mg/dL (0.6-1.3); Estimated Creatinine Clearance 81.6 mL/min (>60); Globulin 2.3 gm/dL (2.3-3.5); Glucose 117 mg/dL (74-106); Osmolality,Calculated 281 (275-295); Potassium 4.4 mMol/L (3.4-5.1); Sodium 141 mMol/L (136-145); eGFR > 60 See Note
[2024-05-19 07:52] VITALS: PULSE 78; RESP 22; O2SAT 100
[2024-05-19 08:00] VITALS: BP 128/93; PULSE 80; RESP 20; TEMP 36.5; O2SAT 100
[2024-05-19] MEDS: BENZTROPINE 0.5 MG TABLET 2 MG PO (08:05)
[2024-05-19] MEDS: FAMOTIDINE 20 MG TABLET PO (08:05)
[2024-05-19] MEDS: ENOXAPARIN SOD INJ 40 MG/0.4 ML SYRINGE SC (08:06)
[2024-05-19 12:00] VITALS: BP 113/62; PULSE 86; RESP 20; TEMP 36.3; O2SAT 95
--- NOTE | 2024-05-19 12:49 | PC.SS ---
Addendum entered by Merry Velazquez 05/19/24 16:44: SS has contacted Olga Lidia (chief analytics officer) from the guardianship office and she states pt is not conserved. SS also spoke to Milagros Rock from correction who states pt is not conserved. SS has spoken to Anita Danielson from [facility] and they will deliver home O2 tonight to patient's home. SS received call from [facility], phone# [phone] who confirmed they will deliver home O2 and is aware transportation time is 7pm. SS has called Nubia and Madelin from [facility] and they both state patient's insurance is inactive. SS contacted 2 different representatives from [facility] at different times and they also explained they contacted the eligibility department and patient's health insurance is inactive. SS has sent patient's facesheet and MATT form to [facility] using [employer]. Transportation time is 7pm. Pt will be returning home with home O2. Allison from [facility] is aware. Milagros from [facility] is aware. Bedside nurse, Alfredito is aware and to contact Allison from [facility] if transportation time is rescheduled. SS provided Alfredito Rn with Allison's phone#. SS earlier spoke to Milagros Rock from correction who is aware patient's health insurance does not qualify for transportation. Milagros explained the correction's transportation has left for the day and they can provide transportation tomorrow. Addendum entered by Merry Velazquez 05/19/24 15:36: SS has sent Hospice inquiry to [facility] using [employer]. SS has spoken to Anita Velarde they have accepted pt and they have contacted correction. Per Jona Velarde they will deliver DME tomorrow (at the request of Milagros, caregiver) Addendum entered by Merry Velazquez 05/19/24 14:59: SS spoke to Milagros Rock who explained she will speak with the correction service rig operator after her meeting and with Dr. Mayo to confirm pt will return with Hospice Services before accepting pt back. Milagros Rock is requesting [facility]. SS has informed physician residents. SS left voicemail for Anita Velarde from [facility]. Original Note: SS spoke to Milagros Rock from patient's correction, phone# [phone] to talk about patient returning with Hospice Services. Per Milagros, she was not aware and is requesting to speak with physicians. Milagros explained she would require to inform the correction service rig operator.
--- NOTE | 2024-05-19 15:26 | ESDS_ITS ---
<Statement entered by Paris Edge MD - 05/20/24 07:33> Patient was seen and examined by me personally. I have reviewed the below documentation by the team resident and agree with its findings with any exceptions as below. Discharge plan was discussed with the attending, Dr. Hernandez. Paris Edge, PGY-2 Planned Discharge Date 05/19/24 DS: Providers Provider Date of admission: 05/12/24 21:59 Primary care physician: Kb Caraballo MD Admitting Provider: Bentley Gutierrez MD Attending Provider on Admission: Demetri Tran MD Consults: 05/13/24 07:55 Referral Speech Therapy Urgent Comment: Swallow evaluation 05/13/24 10:02 Consult to Urology Stat Comment: 3.9 cm stone in bladder and cystitis Consulting Provider: Rachana Han 05/14/24 10:50 Referral Registered Dietitian Routine Comment: Enteral nutrition 05/16/24 10:25 Referral Speech Therapy Routine Comment: Please reassess patient as planning to d/c NGT tmr 05/17/24 08:00 Referral Speech Therapy Routine Comment: Re-evaluation to see if patient can eat 05/19/24 10:53 Referral Hospice Stat Comment: Attending Provider on DC: Miller Dawn MD Discharging Provider: Miller Dawn MD DS: Diagnosis Problem List Completed Was Problem List Reviewed/Reconciled?: Yes Hospital Course Status at Discharge Cognitive/behavioral status at discharge: 59-year-old female with past medical history of developmental delay, osteoporosis, microcephaly, wheelchair-bound presented to the ED on 05/12/2024 for hypoxia and increased work of breathing. In the ED, patient was found to be febrile with a temperature of 100.3, saturating 93 on room air with tachypnea and tachycardia. Troponin was mildly elevated at 0.065 and EKG showed sinus tachycardia without any concerning ST changes. Patient tested positive for influenza A and B send sepsis alert was initiated; moreover, patient was started on Rocephin and Tamiflu and admitted to the hospital. During hospitalization, imaging findings showed a bladder calculi and cystitis with bladder wall thickening up to 7.5 mm; moreover, urology was consulted for recommendations. Per urology recommendations, patient was not a candidate for inpatient surgical management and recommendations were to continue treating the cystitis with IV antibiotics and that the patient could follow-up outpatient with urology for lithotripsy. Patient completed antibiotic and antiviral regimen; however, was failing speech evaluation multiple times. Patient was then started on NG tube feeding and speech evaluation continue to assess the patient on a daily basis. Patient's conservator, Dr. Mayo, was updated throughout hospital stay and decision was made to bring in a staff member from the snf who has familiarity with the patient to attempt feeds; however, those attempts were unsuccessful per in-house speech fitness floor attendant. Dr. Mayo was made aware of this and decision was made to change the patient's CODE STATUS to DNR/DNI and to discharge the patient on hospice. Patient will be discharged back to snf with the following instructions. Comfort feeding to be initiated on hospice Follow-up with hospice recommendations Hospital Diagnosis: #Acute hypoxic respiratory failure #Influenza pneumonia versus bacterial pneumonia, community-acquired #Cystitis #Bladder calculus #Non-obstructing right renal calculus #Poor PO Intake #Hypernatremia #Elevated troponin, downtrending #History of seizures #History of hiatal hernia #History of osteoporosis #History of humeral fracture #History of microcephaly #Developmental delay Miller Dawn, PGY-1 Overall status at discharge: patient is progressing back to baseline Time Spent with Patient Time attestation: Total time spent providing and/or coordinating discharge services: 45 minutes Time spent: Greater than 30 minutes Exam Vital Signs Temp Pulse Resp BP Pulse Ox O2 Del Method O2 Flow Rate 97.3 F 86 20 113/62 95 Nasal Cannula 2 05/19/24 12:05/19/24 12:05/19/24 12:05/19/24 12:05/19/24 12:05/19/24 12:05/19/24 12:00 Narrative Exam General: Developmentally delayed, lying in bed and curled up position, appears to be bedbound, arms, hands and feet close to body HEENT: Poor dentition, dry mucous membranes, eyes wide open, microcephaly Cardiovascular: Tachycardia, radial pulses +2 bilaterally Pulmonary: Wheezing heard on auscultation GI: No tenderness to light or deep palpitation, no guarding, rigidity, rebound tenderness or distension Extremities: No presence of trace or pitting edema in lower extremities bilaterally, dorsalis pedis pulses +2 bilaterally Neuro: AAOx0, no focal motor or sensory deficits in the UE or LE bilat Discharge Plan Plan Patient Disposition: Home w/HOSPICE Care Plan Goals: Comfort feeding to be initiated on hospice Follow-up with hospice recommendations Prescriptions/Referrals Prescriptions/Med Rec: Continued acetaminophen [Tylenol] 325 mg Tablet 650 mg PO Q4HR PRN (Reason: fever or pain) sodium polystyrene sulfonate 15 gram/60 mL Suspension 120 ml PO EVERYOTHERDAY Rx Instructions: SATURDAY, SATURDAY, SATURDAY famotidine 20 mg Tablet 20 mg PO QDAY benztropine 2 mg Tablet 2 mg PO QDAY docusate sodium 250 mg Capsule 250 mg PO BID lactulose [Enulose] 10 gram/15 mL Solution 20 g PO BID Discontinued calcitonin (salmon) 200 unit/actuation [place],Non-Aerosol 1 spray INTRANASAL (ALT) QDAY pravastatin 20 mg Tablet 20 mg PO QDAY ferrous sulfate 325 mg (65 mg iron) Tablet,Delayed Release (Dr/Ec) 325 mg PO QDAY B-complex with vitamin C [Super B Complex-Vitamin C] Tablet 1 tab PO QDAY calcium carbonate-vitamin D3 600 mg(1,500mg) -400 unit Tablet 1 tab PO BID magnesium hydroxide [Milk of Magnesia] 400 mg/5 mL Suspension 30 ml PO QDAY PRN (Reason: Constipation) Rx Instructions: hold for loose stools Referrals: Kb Caraballo MD [Primary Care Provider] - Patient/Caregiver Discharge Instructions Education Materials: What Is Hospice?, Hospice: [facility] Print Language: Lithuanian Stand Alone Forms: Ramonita Award Info., Patient Portal Info Letter Discharge Order Discharge Orders: Discharge (Routine); Ordered 05/19/24 Ordered By: Miller Dawn Quality Discharge Quality Measures VTE prophylaxis Attestestation MD Attestation I reviewed labs, imaging, EKG, home medications and prior available records. Face to face evaluation was performed by me. I have personally examined the patient and discussed assessment and plan with the IM team. I reviewed the resident note and agree with the plan with exceptions as below. Acute hypoxic respiratory failure Influenza pneumonia Community-acquired pneumonia Dysphagia Elevated troponin Developmental delay Patient did not pass a swallow test. High risk of readmission/aspirations. Discussed with Dr. Mayo: Switch the patient to DNR/DNI. Recommended to home with hospice. Discussed with social media intern. Time spent is 40 minutes. More than 50% of the time was spent on patient education and coordination of care.
[2024-05-19 16:00] VITALS: BP 117/89; PULSE 96; RESP 20; TEMP 36.3; O2SAT 95
--- NOTE | 2024-05-19 17:52 | PC.NURSE ---
RN called to give report to Ofelia camacho at [phone]. RN made aware that hop picker time from [facility] at 1900.
[2024-05-19] MEDS: cefTRIAXone 1,000 MG in SODIUM CHLORIDE 0.9% (Popper) 50 ML 100 MG IV (18:07)
== END 2024-05-19 19:00 | disposition hospice, home (50) | DRG 871 ==
LOC: SERX 18:40 → SERHOLD 22:57 → S3NX 05-13 03:05
PROVIDERS: Emergency Medicine; Admitting Provider Student in an Organized Health Care Education/Training Program; Emergency Provider Emergency Medicine; PCP Family Medicine; Visit Provider Student in an Organized Health Care Education/Training Program
DX: A41.89 Other specified sepsis (principal); J10.01 Influenza due to other identified influenza virus with the same other identified influenza virus pneumonia; J96.01 Acute respiratory failure with hypoxia; J10.08 Influenza due to other identified influenza virus with other specified pneumonia; J15.9 Unspecified bacterial pneumonia; E46 Unspecified protein-calorie malnutrition; Z68.1 Body mass index [BMI] 19.9 or less, adult; E87.0 Hyperosmolality and hypernatremia; G80.9 Cerebral palsy, unspecified; M81.0 Age-related osteoporosis without current pathological fracture; E87.6 Hypokalemia; K44.9 Diaphragmatic hernia without obstruction or gangrene; N20.0 Calculus of kidney; N21.0 Calculus in bladder; N30.90 Cystitis, unspecified without hematuria; N31.9 Neuromuscular dysfunction of bladder, unspecified; R62.7 Adult failure to thrive; M24.50 Contracture, unspecified joint; M41.9 Scoliosis, unspecified; R63.8 Other symptoms and signs concerning food and fluid intake; R79.89 Other specified abnormal findings of blood chemistry; R13.10 Dysphagia, unspecified; Q02 Microcephaly; Z22.322 Carrier or suspected carrier of Methicillin resistant Staphylococcus aureus; Z99.3 Dependence on wheelchair; Z66 Do not resuscitate; Z51.5 Encounter for palliative care; Z79.899 Other long term (current) drug therapy
CPT/HCPCS: 36415; 71045; 71250; 74176; 80053; 80061; 80202; 80329; 81001; 83605; 83735; 83880; 84100; 84145; 84443; 84484; 85025; 85610; 85652; 85730; 86140; 86308; 87040; 87077; 87081; 87086; 87186; 87400; 87634; 87651; 87811; 92526; 92610; 93005; 96365; 96367; 96368; 96375; 99291; J0131; J0696; J1650; J1885; J2270; J2405; J3370; J3475; J3480; J7030; J7050; J7121; A9270; G0480

== ENCOUNTER → 2024-09-21 | Outpatient (BNVA) | payer MEDICARE, MEDICAID, SELFPAY | END | disposition home or self-care (01) | PROVIDERS: PCP Family Medicine; Referring Provider Family Medicine; Visit Provider Urology | DX: N31.9 Neuromuscular dysfunction of bladder, unspecified (principal); R32 Unspecified urinary incontinence; N20.0 Calculus of kidney; N21.0 Calculus in bladder; Z99.3 Dependence on wheelchair; K21.9 Gastro-esophageal reflux disease without esophagitis | CPT/HCPCS: 99212; G0463 ==